=== PATIENT | female | born 1955 | race Caucasian/White ===

== ENCOUNTER → 2016-07-12 | Outpatient (CLI) | payer MEDICARE, OTHER ==
--- NOTE | 2016-07-12 13:22 | PN ---
DATE OF SERVICE: 07/12/2016 A 60-year-old lady who had been followed in sleep center for treatment of obstructive sleep apnea-hypopnea syndrome. We discussed results of diagnostic sleep study and CPAP titration with patient in details. Presently, she is on treatment with CPAP at 11 cm of water. She is able to use equipment at night except sometimes she opened her mouth. Otherwise, she sleeps better with the machine and feels better during the day. [place] Sleepiness Scale is 8. I checked her CPAP unit. CPAP pressure is 12 cm of water, ramp starting from 4 cm of water for 45 minutes. A leak is ( ) L per minute, which is acceptable; usage 29 out of 30 nights and 22 out of 30 nights for more than 4 hours, average usage 5.2 hours. Apnea-hypopnea index from the machine for one month 2.4, which is good range. MEDICATIONS: Gabapentin, Abilify, Ventolin inhaler, Breo, Percocet and antidepressant, patient does not remember the name. During physical exam, the patient in no distress. BP 107/67, HR 68, RR 16. Weight 199. Temp 98.6. Oxygen saturation at room air 93%. HEENT: PERRLA, EOMI. LUNGS: Clear. HEART: S1, S2 regular. ABDOMEN: Soft, nontender, slightly obese. EXTREMITIES: 1+ ankle edema. IMPRESSION: 1. Obstructive sleep apnea-hypopnea syndrome in moderate range. Apnea-hypopnea index 18.4 with oxygen desaturation to 69.9% in REM sleep. On control with CPAP at 12 cm of water. Patient demonstrated good compliance with treatment benefiting from treatment. 2. Obesity. 3. History of chronic obstructive pulmonary disease. 4. Low back problems. 5. Status post back infusion. 6. Bipolar disorder. 7. Status post left knee arthroscopic surgery. 8. One plus bilateral leg edema. PLAN: 1. Continue treatment with CPAP every night for the whole night. 2. Prescription for chin strap. 3. Losing weight. 4. Sleep hygiene with regular time in bed for at least 8 hours. 5. No driving if feeling any sleepiness. 6. Follow-up visit in one year unless patient has any problems. Thank you very for allowing me to participate in the management of your patient. Sincerely, Gino Barger MD, PhD, FAASM. Diplomat of [place] [employer], Sleep Medicine Board by [place] [employer] [employer] [facility] [place]
== END | disposition home or self-care (01) ==

== ENCOUNTER → 2016-10-09 | Outpatient (CLI) | payer MEDICARE, OTHER ==
[2016-10-08 10:50] VITALS: BMI 35.0
[2016-10-09 13:02] VITALS: BP 115/75; PULSE 89; RESP 16; TEMP 97.8
--- NOTE | 2016-10-10 07:48 | P.CONS ---
History of Present Illness - Reason for Consult Consult date: 10/09/16 - History of Present Illness This is the initial consultation visit for this 60 years old female with a chronic history of severe low back pain,, low back pain started in 1990 after she was doing heavy lifting at work, and she started complaining of severe low back pain she tried medical management first and then she felt the conservative treatment which required to have lumbar laminectomy and fusion surgery, she continued to have severe low back pain after the fusion and then she had to have another low back surgery which is removal of the hardware, and she did fairly well until 2011 when she fell and she starts having severe low back pain again, the pain localized in the low back area mainly, with occasional radiation to the posterior aspect of her legs, she had no fever or night sweats which she had no motor or sensory deficit, and she tried different pain medications without any significant improvement, Past Medical History Past Medical History: COPD, Sleep Apnea/CPAP/BIPAP Additional Past Medical History / Comment(s): Back pain, neuropathy, borderline hyperlipidema, states thinks she has Fibromyalgia. Uses CPAP machine. History of Any Multi-Drug Resistant Organisms: None Reported Past Surgical History: Back Surgery, Orthopedic Surgery Additional Past Surgical History / Comment(s): Back surgery X2, hand surgery, left knee arthoscopy. Past Anesthesia/Blood Transfusion Reactions: No Reported Reaction Past Psychological History: Anxiety, Depression Smoking Status: Current every day smoker Past Alcohol Use History: Rare Additional Past Alcohol Use History / Comment(s): Has been smoking 1/2 PPd on and off for 41 yrs. Past Drug Use History: Marijuana Additional Drug Use History / Comment(s): Uses medical Marajuana daily. - Past Family History Father Family Medical History: Cancer Medications and Allergies Home Medications Medication Instructions Recorded Confirmed Type ARIPiprazole [Abilify] 5 mg PO QAM 10/08/16 10/09/16 History Albuterol Inhaler [Ventolin Hfa 1 - 2 puff INHALATION Q6HR PRN 10/08/16 History Inhaler] Albuterol Nebulized [Ventolin 2.5 mg INHALATION Q4H PRN 10/08/16 10/09/16 History Nebulized] Gabapentin [Neurontin] 600 mg PO TID 10/08/16 10/09/16 History Tiotropium 18 Mcg/Puff [Spiriva] 1 cap INHALATION DAILY 10/08/16 10/09/16 History Vortioxetine Hydrobromide 5 mg PO QAM 10/08/16 10/09/16 History [Trintellix] oxyCODONE HCL/ACETAMINOPHEN 1 tab PO TID PRN 10/08/16 10/09/16 History [Percocet 10-325 mg] Allergies Allergy/AdvReac Type Severity Reaction Status Date / Time sulfamethoxazole AdvReac Itching Verified 10/09/16 12:53 [From Bactrim] trimethoprim [From Bactrim] AdvReac Itching Verified 10/09/16 12:53 Physical Exam Vitals: Vital Signs Temp Pulse Resp BP Pulse Ox 10/09/16 12:55 97.8 F 89 16 115/75 95 Social history : smoker , social ETOH , use marijuana/she had a medical marijuana Review of Systems : 1- Constitutional : no chills , no fever , no night sweats , 2- Ears : no ear discharge , no change in hearing 3-Nose, Mouth ,Throat ; no bleeding gums, no sore throat , no epistaxis , 4-Cardiovascular : Denies chest pain, , no orthopnea , no palpitation 5-Respiratory : Denies cough , no dyspnea , no hemoptysis 6-Gastrointestinal :, no change in bowel habits , no coffee- ground emesis . 7-Genitourinary : No hematuria , no discharge , no incontinence, 8-Musculoskeletal : No gait dysfunction , report low back pain , 9- Neurological : no ataxia , no tremor , no sezure , 10-Psychatric , no suicidal ideation no hallucination 11- Endocrine : no cold intolerence , no polyuria , no polydypsia , 12-Hematologic : no easy bleeding , no easy brusing , 13-Allergic / immunology : no angioedema , no wheezing ,no allergic rhinitis 14-Integumentary : no brttle nails , no change hair / nails , no foot/leg ulcers . Physical Examinations : 1-Constitutional : Cooperative , not in acute distress . 2-HEENT : nech ; supple , no Lymphadenopathy , no Thyromegaly , :eyes , no icterus, no photophobia . ENT : , normal oropharynx , no Thrush 3- Respiratory : Chest clear to auscultations Bilaterally , no wheezing . 4- Cardiovascular : regular rate and rhythem , S1 , S2 , no S3 , no S4. 5- Gastrointestinal: abdomen soft no tenderness , no organomegally . 6- Genitourinary : Defferred . 7-Integumentary : No cellulitis , no ulcers , normal skin turgor , no cyanotic . 8- neurologic : Cranial nerve II to XII intact , no focal neurological deffecit 9-psychatric : alert , oriented X 3 , appropriate affect , intact judgment and insight . 10-Lymphatic : no Lymphadenopathy. 11- musculoskeltal: exams of the cervical spine = motor stregnth in the deltoid and biceps, normal right side , normal Left side motor stregnth biceps and the wrist extensors normal right side ,normal left side . motor stregnth in the triceps muscle . normal Right side , normal Left side deep tendon reflexes normal at the biceps , normal at Brachioradialis , normal at triceps. exams of the Lumber spine = moter stegnth lower extremities , thigh and legs 5/5 Right side , 5/5 Left side deep tendon reflexes : normal Knee Jerk , normal ankle Jerk positive lumber facet Loading Test Range of motion of the lumbar spine Flexion 30 degrees, extension 10 degrees strait leg raising test , positive at 30 degree Fabere test positive RT and positive LT . Results Comments: X-ray of the lumbar spine= lumbar degenerative disc disease and lumbar facet arthropathy and spondylolisthesis Assessment and Plan Plan: Assessment and plan = - Chronic low back pain secondary to lumbar degenerative disc disease , lumbar spondylosis with facet arthropathy without myelopathy , failed back surgery syndrome lumbar area Patient signed the narcotic agreement , and was orally counseled not to overuse , abuse , divert, or sell medications ,and take them as prescribed only , and the patient was counseled against driving and while you are using the narcotic medication also not to use alcohol or any illicit drugs and the patient verbalized understanding that lack of compliance and could result in failure to renew narcotics prescriptions and possible discharge from the clinic - diagnoses, prognosis, and treatment options including but not limited to physical therapy, surgical interventions, interventional therapies and medication management including narcotics and adjuvant medication were discussed with the patient and all questions answered to the patient's satisfaction. -medication refile = patient getting prescription refills from her primary care -procedure= patient will be scheduled to have diagnostic medial branch block lumbar area at bilateral L3-4 /L4 5/L5-S1 , and do the diagnostic block twice and if she is positive we'll proceed with the radiofrequency ablation of the medial branch lumbar area Time with Patient: Greater than 30
== END | disposition home or self-care (01) ==
LOC: PNWHC3 12:28
PROVIDERS: ATTEND Specialist
DX: M51.36 Other intervertebral disc degeneration, lumbar region (principal); M47.816 Spondylosis without myelopathy or radiculopathy, lumbar region; M46.86 Other specified inflammatory spondylopathies, lumbar region; F32.9 Major depressive disorder, single episode, unspecified; F41.9 Anxiety disorder, unspecified; Z79.899 Other long term (current) drug therapy; Z88.2 Allergy status to sulfonamides
CPT/HCPCS: 99201

== ENCOUNTER 2016-11-02 11:41 | Day surgery (SDC) | payer MEDICARE, OTHER ==
[2016-10-31 15:00] VITALS: BMI 34.5
[~2016-11-02 11:41] MED LIST: LACTATED RINGERS 1,000 ML IV SCH
[2016-11-02 12:39] VITALS: RESP 16; TEMP 97.4
[2016-11-02] MEDS ORDERED: LIDOCAINE 1% 20 ML VIAL (10MG/ML) FOR IV START INTRADERMA ONE (12:49)
[2016-11-02] MEDS ORDERED: BUPIVACAINE (PF) 0.5% 30 ML VIAL ONE (13:01)
[2016-11-02] MEDS ORDERED: TRIAMCINOLONE ACETONIDE 40 MG/ML 1 ML VIAL ONE (13:01)
[2016-11-02] MEDS ORDERED: fentaNYL (PF) 50 MCG/ML 2 ML AMP ONE (13:01)
[2016-11-02] MEDS ORDERED: MIDAZOLAM 2 MG/2 ML VIAL ONE (13:01)
--- NOTE | 2016-11-02 13:36 | P.PCN ---
Date of Procedure: 11/02/16 Procedure(s) Performed: PREOPERATIVE DIAGNOSIS : 1- Lumbar spondylosis with Facet Arthropathy without myelopathy . 2- Lumber degenerative disc disease 3-Failed Back surgery Syndrome POSTOPERATIVE DIAGNOSIS: 1- Lumbar spondylosis with Facet Arthropathy without myelopathy . 2- Lumber degenerative disc disease 3-Failed Back surgery Syndrome PROCEDURE: Diagnostic bilateral L3 -4 , L4 -5 , and L5-S1 medial branch block under fluoroscopy ANESTHESIA: Local with 1% lidocaine 6 ml ; IV sedation with Versed 2 mg and Fentanyl 100 mcg. EBL: Minimal COMPLICATION: None. IV FLUIDS: 100 mL of normal saline. PROCEDURE INDICATION: Chronic low back pain secondary to Facet arthropathy unresponsive to conservative treatment. PROCEDURE DESCRIPTION: the patient was seen and identified in the preop holding area , risks and benefits and possible complications of the procedure and alternative were discussed with the patient, and the patient agreed to proceed with the procedure and signed the consent IV was started and vital signs monitored during the procedure and fluoroscopy was used to maximize the benefit and accuracy of the needle placement, and sedation was given to decrease patient anxiety, patient was taken to the procedure room and placed in prone position vital signs monitored in the back prepped with chlorhexidine X3 then under strict sterile technique using a right oblique fluoroscopy ,the junction of the transverse process and the superior articulating process of the right L3- 4 , L4- 5, and L5-S1 vertebra which corresponding to the fluoroscopy image of the eye of the Bryn dog on the block side for the medial branches and subsequently , after local infiltration of skin and subcu tissuies with lidocaine 1% one mL at each level ,then 22- gauge Quincke-type needles , 3 needle was used , each one of them placed at the junction of the base of the transverse process and the superior articular process at the appropriate level, and the needle was advanced until the periosteum contacted, needle placement confirmed with AP oblique and lateral view and after appropriate needle placement confirmed, and after negative aspiration for heme and CSF and there was no paresthesia 1-1/2 mL of Marcaine 0.5% mixed with 20 mg Kenalog , then half mL injected at each level after negative aspiration the needle subsequently removed and the same procedure repeated for the left side at left side at L3-4, L4- 5 and L5-S1 levels. At the end of the procedure and the needles removed and a bandage applied after the skin was cleaned the cleaning solution patient taken to recovery room in stable condition and monitors in the recovery room for 20-30 minutes and discharged home in stable condition after discharge criteria met and patient will follow up with the pain clinic in 2-4 weeks Note= restarting the procedure immediately after we put the EKG leads on the patient, patient has episode of a flutter/fibrillation for a few seconds, patient was hemodynamically stable, and converted to sinus rhythm spontaneously , Iwill order a 12-lead EKG in the recovery room .
--- NOTE | 2016-11-02 13:40 | FL ---
FLUOROSCOPY 18 seconds of fluoroscopy time were utilized during bilateral facet block. 4 images document the proc edure.
[2016-11-02 14:09] VITALS: BP 95/64; PULSE 66
== END 2016-11-02 14:30 | disposition home or self-care (01) ==
LOC: ORPAIN 11:41
PROVIDERS: ATTEND Specialist
DX: G89.29 Other chronic pain (principal); M47.816 Spondylosis without myelopathy or radiculopathy, lumbar region; M46.96 Unspecified inflammatory spondylopathy, lumbar region; M51.36 Other intervertebral disc degeneration, lumbar region; M96.1 Postlaminectomy syndrome, not elsewhere classified; R00.1 Bradycardia, unspecified; R94.31 Abnormal electrocardiogram [ECG] [EKG]; Z88.1 Allergy status to other antibiotic agents; Z88.2 Allergy status to sulfonamides; Z91.041 Radiographic dye allergy status; F17.200 Nicotine dependence, unspecified, uncomplicated
CPT/HCPCS: 93005; 64493; 64494; 64495; 99152; 99153; J2250; J3301; J3010

== ENCOUNTER 2016-11-29 10:10 | Day surgery (SDC) | payer MEDICARE, OTHER ==
[2016-11-28 09:51] VITALS: BMI 33.1
[2016-11-29 10:32] VITALS: RESP 16; TEMP 97
[2016-11-29] MEDS ORDERED: BUPIVACAINE (PF) 0.5% 30 ML VIAL ONE (11:05)
[2016-11-29] MEDS ORDERED: MIDAZOLAM 2 MG/2 ML VIAL ONE (11:05)
[2016-11-29] MEDS ORDERED: DEXAMETHASONE SOD PHOS (MDV) 100 MG/10 ML VIAL ONE (11:05)
[2016-11-29] MEDS ORDERED: fentaNYL (PF) 50 MCG/ML 2 ML AMP ONE (11:05)
--- NOTE | 2016-11-29 11:32 | P.PCN ---
Date of Procedure: 11/29/16 Preoperative Diagnosis: Postoperative Diagnosis: Procedure(s) Performed: PREOPERATIVE DIAGNOSIS : 1- Lumbar spondylosis with Facet Arthropathy without myelopathy . 2- Lumber degenerative disc disease 3- failed back surgery syndrome lumbar area POSTOPERATIVE DIAGNOSIS: 1- Lumbar spondylosis with Facet Arthropathy without myelopathy . 2- Lumber degenerative disc disease 3-failed back surgery syndrome lumbar area PROCEDURE: Diagnostic bilateral L3 -4 , L4 -5 , and L5-S1 medial branch block under fluoroscopy ANESTHESIA: Local with 1% lidocaine 6 ml ; IV sedation with Versed 2 mg and Fentanyl 100 mcg. EBL: Minimal COMPLICATION: None. IV FLUIDS: 100 mL of normal saline. PROCEDURE INDICATION: Chronic low back pain secondary to Facet arthropathy unresponsive to conservative treatment. PROCEDURE DESCRIPTION: the patient was seen and identified in the preop holding area , risks and benefits and possible complications of the procedure and alternative were discussed with the patient, and the patient agreed to proceed with the procedure and signed the consent IV was started and vital signs monitored during the procedure and fluoroscopy was used to maximize the benefit and accuracy of the needle placement, and sedation was given to decrease patient anxiety, patient was taken to the procedure room and placed in prone position vital signs monitored in the back prepped with chlorhexidine X3 then under strict sterile technique using a right oblique fluoroscopy ,the junction of the transverse process and the superior articulating process of the right L3- 4 , L4- 5, and L5-S1 vertebra which corresponding to the fluoroscopy image of the eye of the Bryn dog on the block side for the medial branches and subsequently , after local infiltration of skin and subcu tissuies with lidocaine 1% one mL at each level ,then 22- gauge Quincke-type needles , 3 needle was used , each one of them placed at the junction of the base of the transverse process and the superior articular process at the appropriate level, and the needle was advanced until the periosteum contacted, needle placement confirmed with AP oblique and lateral view and after appropriate needle placement confirmed, and after negative aspiration for heme and CSF and there was no paresthesia 1-1/2 mL of Marcaine 0.5% mixed with 10 mg Dexamethasone , then half mL injected at each level after negative aspiration the needle subsequently removed and the same procedure repeated for the left side at left side at L3-4, L4- 5 and L5-S1 levels. At the end of the procedure and the needles removed and a bandage applied after the skin was cleaned the cleaning solution patient taken to recovery room in stable condition and monitors in the recovery room for 20-30 minutes and discharged home in s Implants: Indications for Procedure: Operative Findings: Description of Procedure:
[2016-11-29] MEDS ORDERED: IV FLUID CONTINUATION 1,000 ML IV ONE (11:35)
[2016-11-29 11:54] VITALS: BP 110/71; PULSE 97
--- NOTE | 2016-11-29 14:40 | FL ---
EXAMINATION TYPE: FL guided pain mgmt statistic DATE OF EXAM: 11/29/2016 FLUOROSCOPY Fluoroscopy time of 12 seconds was used during lumbar pain intervention procedure.. 4 image/s docume nt/s the procedure.
== END 2016-11-29 12:16 | disposition home or self-care (01) ==
LOC: ORPAIN 10:10
PROVIDERS: ATTEND Specialist
DX: G89.29 Other chronic pain (principal); M51.36 Other intervertebral disc degeneration, lumbar region; M47.816 Spondylosis without myelopathy or radiculopathy, lumbar region; M46.96 Unspecified inflammatory spondylopathy, lumbar region; M96.1 Postlaminectomy syndrome, not elsewhere classified; J44.9 Chronic obstructive pulmonary disease, unspecified; G47.33 Obstructive sleep apnea (adult) (pediatric); Z88.2 Allergy status to sulfonamides; Z91.041 Radiographic dye allergy status
CPT/HCPCS: 64493; 64494; 64495; 99152; J2250; J3010; J1100

== ENCOUNTER 2016-12-24 12:51 | Emergency (ER) | payer MEDICARE, OTHER ==
[2016-12-24 12:57] VITALS: BP 137/86; PULSE 70; RESP 20; TEMP 98.4
--- NOTE | 2016-12-24 13:30 | ED ---
Skin/Abscess/FB HPI - General Chief complaint: Skin/Abscess/Foreign Body Stated complaint: Abscess on Finger Time Seen by Provider: 12/24/16 13:02 Source: patient Mode of arrival: ambulatory Limitations: no limitations - History of Present Illness Initial comments: This is a 61-year-old female who presents emergency department for right index finger swelling. She states that she noticed it 3 days ago and is gradually worsened. She states that [facility] was prescribed Keflex however has not started taking it. She denies any pain with flexion or extension of the finger. No fevers or chills. No numbness, tingling or weakness in the extremity. She states that she had some stitches placed in that area that were removed recently and that is where the swelling has occurred. She denies any other complaints. - Related Data Home Medications Medication Instructions Recorded Confirmed ARIPiprazole [Abilify] 5 mg PO QAM 10/08/16 12/24/16 Albuterol Inhaler [Ventolin Hfa 1 - 2 puff INHALATION RT-Q6H PRN 10/08/16 Inhaler] Albuterol Nebulized [Ventolin 2.5 mg INHALATION RT-Q4H PRN 10/08/16 12/24/16 Nebulized] Gabapentin [Neurontin] 600 mg PO TID 10/08/16 12/24/16 Tiotropium 18 Mcg/Puff [Spiriva] 1 cap INHALATION RT-DAILY 10/08/16 12/24/16 Vortioxetine Hydrobromide 5 mg PO QAM 10/08/16 12/24/16 [Trintellix] Ibuprofen [Motrin] 600 mg PO TID PRN 10/15/16 12/24/16 Previous Rx's Medication Instructions Recorded Clindamycin [Cleocin] 450 mg PO Q6H #84 capsule 12/24/16 Allergies Allergy/AdvReac Type Severity Reaction Status Date / Time Iodinated Contrast Media - Allergy Rash/Hives Verified 12/24/16 13:21 Oral and sulfamethoxazole Allergy Itching Verified 12/24/16 13:21 [From Bactrim] trimethoprim [From Bactrim] Allergy Itching Verified 12/24/16 13:21 Review of Systems ROS Statement: Those systems with pertinent positive or pertinent negative responses have been documented in the HPI. ROS Other: All systems not noted in ROS Statement are negative. Past Medical History Past Medical History: COPD, Sleep Apnea/CPAP/BIPAP Additional Past Medical History / Comment(s): Back pain, neuropathy, borderline hyperlipidema, states thinks she has Fibromyalgia. Uses CPAP machine. History of Any Multi-Drug Resistant Organisms: None Reported Past Surgical History: Back Surgery, Orthopedic Surgery Additional Past Surgical History / Comment(s): Back surgery X2, hand surgery, left knee arthoscopy. Past Anesthesia/Blood Transfusion Reactions: No Reported Reaction Past Psychological History: Anxiety, Depression Smoking Status: Current every day smoker - Past Family History Father Family Medical History: Cancer Mother Family Medical History: Myocardial Infarction ([place]) Additional Family Medical History / Comment(s): 2 stents in heart. General Exam - General Exam Comments Initial Comments: Constitutional: Awake alert Appears comfortable Head: Normocephalic atraumatic Eyes: no conjunctival injection No scleral icterus EOMI Neck: No JVD Supple Heart: Regular rate rhythm normal S1-S2 no murmurs Lungs: Clear to auscultation bilaterally No wheezing No rales Abdomen: Soft nondistended nontender Extremities: Non edematous DP pulses intact Radial pulses intact, 2 cm x 2 cm abscess over the right index finger PIP joint. No tenderness to palpation along the joint line. No pain with passive or active range of motion of the finger Neuro: A&Ox3 No focal neurologic deficits Psych: Appropriate mood and affect Limitations: no limitations Course Vital Signs 12/24/16 12:53 Temperature 98.4 F Pulse Rate 70 Respiratory 20 Rate Blood Pressure 137/86 O2 Sat by Pulse 98 Oximetry Procedures - Incision & Drainage Consent Obtained: verbal consent Site: hand Size (cm): 2 Anesthetic Used: lidocaine 1%, without epi Amount (mLs): 2 I&D Cleaning Method: Betadine Sterile Field Used?: Yes Scalpel Used: #11 I&D Drainage Obtained: Pus, Blood Patient Tolerated Procedure: well, no complications Medical Decision Making - Medical Decision Making Is a 61-year-old female presents emergency report for right index finger abscess. This was incised and drained at bedside with good result. The patient is going to be switched over to clindamycin for the abscess. She was told to not fill her Keflex. She needs to have it reevaluated next 3 or 4 days. She will return if it worsens. All questions were answered. Disposition Clinical Impression: Abscess of finger Disposition: HOME SELF-CARE Condition: Stable Instructions: Abscess Incision and Drainage (ED), Abscess (ED) Additional Instructions: Do not take her Keflex. Take the clindamycin instead of the Keflex. Wash with warm water and soap. Place antibiotic ointment over the wound area monitor for signs of increased swelling. Have it reevaluated by her primary doctor in the next 3-4 days. Prescriptions: Clindamycin [Cleocin] 450 mg PO Q6H #84 capsule Referrals: Fer Villegas MD [Primary Care Provider] - 1-2 days
== END 2016-12-24 13:57 | disposition home or self-care (01) ==
LOC: EC 12:51
DX: L02.511 Cutaneous abscess of right hand (principal); J44.9 Chronic obstructive pulmonary disease, unspecified; F32.9 Major depressive disorder, single episode, unspecified; F17.200 Nicotine dependence, unspecified, uncomplicated; Z88.2 Allergy status to sulfonamides; Z91.041 Radiographic dye allergy status; Z79.899 Other long term (current) drug therapy
CPT/HCPCS: 10060; 99282

== ENCOUNTER → 2017-02-04 | Outpatient (CLI) | payer MEDICARE ==
[2017-02-04 14:43] VITALS: BP 123/69; PULSE 72; RESP 16; TEMP 97.9
--- NOTE | 2017-02-04 15:02 | P.PN ---
Progress Note - Text This is a 61-year-old female with lower back pain that responded favorably by about 100% relief of LBP after lumbar medial branch block that was done a few weeks ago. The patient had lumbar laminectomy and she still has the facet joints in place she doesn't have any hardware in her lumbar spine. The patient had a TIA recently and was started on aspirin 81 mg a day. I think the patient would be a good candidate for lumbar medial branch pharmacy ablation we will start by doing the right side first because it is the more painful side. The procedure was explained to the patient and her questions were answered.
== END ==
LOC: PNWHC3 14:23
PROVIDERS: ATTEND Anesthesiology
DX: M54.5 Low back pain (principal); Z79.899 Other long term (current) drug therapy
CPT/HCPCS: 99211

== ENCOUNTER 2017-02-21 06:53 | Day surgery (SDC) | payer MEDICARE ==
[2017-02-19 09:37] VITALS: BMI 32.2
[2017-02-21] MEDS ORDERED: LACTATED RINGERS 1,000 ML IV ONE (07:15)
[2017-02-21 07:34] VITALS: TEMP 97.8
[2017-02-21] MEDS ORDERED: LIDOCAINE 1% 20 ML VIAL (10MG/ML) FOR IV START INTRADERMA ONE (07:42)
--- NOTE | 2017-02-21 08:49 | P.PCN ---
Date of Procedure: 02/21/17 Preoperative Diagnosis: Postoperative Diagnosis: Procedure(s) Performed: PREOPERATIVE DIAGNOSIS: 1-Lumbar Spondylosis with Facet Arthropathy without myelopathy. 2- Lumber degenerative disc disease. POSTOPERATIVE DIAGNOSIS: 1- Lumbar Spondylosis with Facet Arthropathy without myelopathy. 2- Lumber degenerative disc disease. PROCEDURES : Right Radiofrequency thermocoagulation, L3-L4, L4-L5, and L5-S1 medial branch, with fluoroscopic guidance ANESTHESIA: IV sedation with versed 2 mg and fentaneyl 50 mcg and local infiltration with lidocaine 1% 6 ml EBL: Minimal PROCEDURE INDICATION: The patient with low back pain secondary to lumbar facet arthropathy who had more than 50% relief of her pain with previous diagnostic lumbar medial branch block with bupivacaine. PROCEDURE DESCRIPTION / TECHNIQUE: The patient was seen and identified in the preoperative area. Risks, benefits, complications, including but not limited to risk of infection ,bleeding , allergic reactions to the medications and no complete pain releife , and alternatives were discussed with the patient, the patient agreed to proceed with the procedure and signed the consent. IV was started. Vital signs remained stable throughout the procedure. Patient was taken to the OR and time out was completed. The patient was placed in the prone position on the procedure table. The lumber area was prepped and draped in the usual sterile fashion. . Vital signs were closely monitored during the procedure .IV sedation was used during the procedure to decrease patients anxiety. Using AP and then oblique fluoroscopy, the ``eye of the Bryn dog corresponding to the connection between the superior and transverse articular processes of right L3, L4, and L5 were identified, marked, and localized with 1 % lidocaine. Subsequently, a 18 [id number] radiofrequency cannula with a 10- mm active tip was advanced guided by fluoroscopy to each of the ``eyes of the Bryn dog at right L3, L4, and L5. Each site then underwent sensory testing at 50 Hz and 0 to 1 volt and motor testing at 2.5 Hz and 0 to 3 volt with local stimulation, but no radicular symptoms down the legs. Thereafter the right L3-4, L4-5, and L5-S1 sites underwent radiofrequency thermocoagulation at 80 degrees celsius for 90 seconds after injecting 0.5 ml of PF lidocaine 1%. then After the thermocoagulation done , 1 ml of the block solution containing dexamethasone 10 mg and 3 ml of marain 0.5% was injected at the right L3-4 , L4-5 , and L5-S1, levels after negative aspiration of CSF and blood and with no paresthesias. Cannulas were retracted while injecting lidocaine 1% until the needle is out. At the end of the procedure, the skin was cleansed and bandages were applied. COMPLICATIONS: No acute complications. DISPOSITION / PLANS: The patient was placed in a supine position and transferred to the recovery area in a stable condition for observation and was discharged from the recovery room after meeting discharge criteria. Home discharge instructions given to the patient by the staff. The patient was reexamined prior to discharge. The patient will schedule a follow up in the clinic in 2-4 weeks. Implants: Indications for Procedure: Operative Findings: Description of Procedure:
--- NOTE | 2017-02-21 08:55 | FL ---
EXAMINATION TYPE: FL guided pain mgmt statistic DATE OF EXAM: 02/21/2017 HISTORY: Flouroscopy time 17 seconds of fluoroscopy provided. IMPRESSION: 1. Fluoroscopy time.
[2017-02-21] MEDS ORDERED: IV FLUID CONTINUATION 600 ML IV ONE (08:57)
[2017-02-21 09:01] VITALS: RESP 16
[2017-02-21 09:20] VITALS: BP 99/62; PULSE 56
== END 2017-02-21 09:47 | disposition home or self-care (01) ==
LOC: ORPAIN 06:53
PROVIDERS: ATTEND Specialist
DX: M51.36 Other intervertebral disc degeneration, lumbar region (principal); M47.816 Spondylosis without myelopathy or radiculopathy, lumbar region; M46.96 Unspecified inflammatory spondylopathy, lumbar region; J44.9 Chronic obstructive pulmonary disease, unspecified; G47.33 Obstructive sleep apnea (adult) (pediatric); Z86.73 Personal history of transient ischemic attack (TIA), and cerebral infarction without residual deficits; Z88.2 Allergy status to sulfonamides; Z91.041 Radiographic dye allergy status
CPT/HCPCS: 64635; 64636 ×2; 99152; J2250; J1100; J3010; 99153

== ENCOUNTER 2017-03-19 07:53 | Day surgery (SDC) | payer MEDICARE ==
[2017-03-19] MEDS ORDERED: LACTATED RINGERS 1,000 ML IV SCH (08:44)
[2017-03-19 09:00] VITALS: RESP 18; TEMP 97.7
[2017-03-19] MEDS ORDERED: LEVALBUTEROL NEB 1.25 MG/3 ML AMP INHALATION STA (09:19)
[2017-03-19] MEDS ORDERED: LIDOCAINE 1% 20 ML VIAL (10MG/ML) FOR IV START INTRADERMA ONE (09:21)
--- NOTE | 2017-03-19 10:22 | P.PCN ---
Date of Procedure: 03/19/17 Procedure(s) Performed: PREOPERATIVE DIAGNOSIS: 1-Lumbar Spondylosis with Facet Arthropathy without myelopathy. POSTOPERATIVE DIAGNOSIS: 1- Lumbar Spondylosis with Facet Arthropathy without myelopathy. PROCEDURES : Left Radiofrequency thermocoagulation, L3-L4, L4-L5, and L5-S1 medial branch, with fluoroscopic guidance ANESTHESIA: IV sedation with versed 2 mg and fentaneyl 50 mcg and local infiltration with lidocaine 1% 6 ml EBL: Minimal PROCEDURE INDICATION: The patient with low back pain secondary to lumbar facet arthropathy who had more than 50% relief of her pain with previous diagnostic lumbar medial branch block with bupivacaine. PROCEDURE DESCRIPTION / TECHNIQUE: The patient was seen and identified in the preoperative area. Risks, benefits, complications, including but not limited to risk of infection ,bleeding , allergic reactions to the medications and no complete pain releife , and alternatives were discussed with the patient, the patient agreed to proceed with the procedure and signed the consent. IV was started. Vital signs remained stable throughout the procedure. Patient was taken to the OR and time out was completed. The patient was placed in the prone position on the procedure table. The lumber area was prepped and draped in the usual sterile fashion. . Vital signs were closely monitored during the procedure .IV sedation was used during the procedure to decrease patients anxiety. Using AP and then oblique fluoroscopy, the ``eye of the Bryn dog corresponding to the connection between the superior and transverse articular processes of left L3, L4, and L5 were identified, marked, and localized with 1 % lidocaine. Subsequently, a 18 [id number] radiofrequency cannula with a 10- mm active tip was advanced guided by fluoroscopy to each of the ``eyes of the Bryn dog at left L3, L4, and L5. Each site then underwent sensory testing at 50 Hz and 0 to 1 volt and motor testing at 2.5 Hz and 0 to 3 volt with local stimulation, but no radicular symptoms down the legs. Thereafter the left L3-4, L4-5, and L5-S1 sites underwent radiofrequency thermocoagulation at 80 degrees celsius for 90 seconds after injecting 0.5 ml of PF lidocaine 1%. then After the thermocoagulation done , 1 ml of the block solution containing Kenalog 40 mg and 3 ml of marain 0.5% was injected at the left L3-4 , L4-5 , and L5-S1, levels after negative aspiration of CSF and blood and with no paresthesias. Cannulas were retracted while injecting lidocaine 1% until the needle is out. At the end of the procedure, the skin was cleansed and bandages were applied. COMPLICATIONS: No acute complications. DISPOSITION / PLANS: The patient was placed in a supine position and transferred to the recovery area in a stable condition for observation and was discharged from the recovery room after meeting discharge criteria. Home discharge instructions given to the patient by the staff. The patient was reexamined prior to discharge. The patient will schedule a follow up in the clinic in 2-4 weeks.
--- NOTE | 2017-03-19 10:46 | FL ---
EXAMINATION TYPE: FL guided pain mgmt statistic DATE OF EXAM: 03/19/2017 CLINICAL HISTORY: Low back pain. TECHNIQUE: Fluoroscopy. COMPARISON: None. FINDINGS: Fluoroscopic guidance was provided during pain relief procedure performed by Dr. Silva . A total of 19 seconds of fluoroscopic time was utilized during the procedure and 3 spot images are acquired. Images acquired shows needle localization at multiple levels in the lower lumbar spine. IMPRESSION: As Above.
[2017-03-19 10:59] VITALS: BP 110/74; PULSE 71
[2017-03-19] MEDS ORDERED: IV FLUID CONTINUATION 1,000 ML IV ONE (11:08)
== END 2017-03-19 11:18 | disposition home or self-care (01) ==
LOC: ORPAIN 07:53
PROVIDERS: ATTEND Specialist
DX: M47.816 Spondylosis without myelopathy or radiculopathy, lumbar region (principal); J44.9 Chronic obstructive pulmonary disease, unspecified; Z86.73 Personal history of transient ischemic attack (TIA), and cerebral infarction without residual deficits; Z88.2 Allergy status to sulfonamides; Z88.8 Allergy status to other drugs, medicaments and biological substances; Z91.041 Radiographic dye allergy status
CPT/HCPCS: 94640; 64635; 64636 ×2; 99152; J2250; J3301; J3010; 99153

== ENCOUNTER → 2017-04-09 | Outpatient (CLI) | payer MEDICARE ==
[2017-04-09 14:47] VITALS: BP 134/81; PULSE 150; RESP 18
--- NOTE | 2017-04-09 14:58 | P.PN ---
Progress Note - Text Progress Note Date: 04/09/17 Patient returns for followup for chronic back pain. Patient recently underwent bilateral lumbar RFA, which provided some relief for interval since procedure. Patient continues on no regular pain medications except gabapentin but does use medical marijuana. Patient denies adverse drug effects from medications. Today , pt denies new-onset weakness, bowel/bladder incontinence, or any other signs or symptoms of cauda equina syndrome. There are no signs of acute intoxication, and no indications of medication diversion or overuse. In addition to above, 13-point review of systems is also negative for chest pain , shortness of breath, changes in vision, changes in hearing, new onset weakness , abdominal pain, diarrhea, extreme fatigue, malaise, fever, skin changes, homicidal or suicidal ideation, or bowel or bladder incontinence. Vital Signs: Reviewed in EMR Gen: WDWN, AAOx3, NAD HEENT: NCAT, EOMI, hearing grossly normal Pulm: resp unlabored Abd: soft, NT, ND Neck: supple, trachea midline ROM in flexion lumbar spine: reduced ROM in extension lumbar spine: reduced Lumbar paravertebral tenderness: + Facet loading: + bilateral SI joint tenderness: + R > L Victoriano's test: + R > L Straight leg raise: neg Neuro: CN II-XII grossly intact, muscle strength lower extremities PRESERVED Imaging: Reviewed in EMR Assessment: 1. lumbar spondylosis without myelopathy 2. SIJ dysfunction 3. chronic pain syndrome Plan: 1. Explanation: Opioid and psychological risk scores were reviewed. Diagnoses , prognoses, and multiple treatment options including but not limited to physical therapy, interventional therapies, adjuvant medical therapies, narcotic medication therapies, and surgery were discussed with the patient and all questions were answered to the patient's satisfaction. 2. Opioid agreement: Patient has previously signed narcotic agreement, and was orally counseled to not overuse, abuse, divert, or cell medications, and to take them as prescribed by only 1 healthcare provider. The patient was also counseled to store opioid medications in a safe and preferably locked location. Patient was also counseled against driving or operating heavy equipment while using narcotic medications and also to not use alcohol or any illicit or recreational drugs. The patient verbalized understanding that lack of compliance with any of the above and likely result in failure to renew narcotic prescriptions, possible discharge from the clinic, and possible legal ramifications thereafter if indicated. 3. Counseling: The patient was counseled extensively on SMOKING CESSATION, BODY MASS INDEX, EXERCISE. Specifically, the patient was instructed regarding the importance of smoking cessation, weight control, and exercise in the context of both chronic pain and overall health. 4. Procedures: none for now 5. Consultations: None 6. Investigations: None 7. Medications: none prescribed 8. Disposition: f/u for re-eval in 12 weeks. If PCP prefers not to write gabapentin, we can take over and prescribe 100 mg TID #90 with one refill PQRS measures: 1-Patient's medications are documented in the chart. 2-Tobacco use is positive, counseling given 3-Patient has not had a pneumococcal vaccine. 4-Advanced care planning discussed, patient unable to give. 5-Opioid contract NOT signed with the patient. 6-Pain positive, follow-up visit or procedure scheduled 7-Patient's blood pressure measured and documented, and patient will follow up with the primary care due to hypertension. 8-Patient's weight was measured, and body mass index ABOVE the normal limits, and counseling was done. Patient instructed to follow up with PCP. 9-Patient WAS NOT identified as an unhealthy alcohol user.
== END | disposition home or self-care (01) ==
LOC: PNWHC3 14:29
PROVIDERS: ATTEND Anesthesiology
DX: M47.816 Spondylosis without myelopathy or radiculopathy, lumbar region (principal); M53.3 Sacrococcygeal disorders, not elsewhere classified; G89.4 Chronic pain syndrome
CPT/HCPCS: 99211

== ENCOUNTER 2017-05-01 10:59 | Inpatient (IN) | payer MEDICARE, OTHER ==
[2017-04-26 12:46] VITALS: BMI 32.5
[2017-05-01] MEDS ORDERED: SODIUM CHLORIDE 0.9% 500 ML IV ONE (11:10)
[2017-05-01] MEDS: APIXABAN 5 MG TAB PO SCH ×2 (12:40→21:04)
[2017-05-01] MEDS ORDERED: SODIUM CHLORIDE 0.9% 500 ML IV SCH (13:00)
--- NOTE | 2017-05-01 13:01 | CONS ---
CONSULTATION Mrs. Grullon is a 61-year-old female, who is admitted through the extended stay unit because of the atrial flutter and rapid rate. This patient was recently seen in the office for the evaluation of PFO and patient was supposed to have a TAMMIE done to rule out significant PFO. The patient was recently admitted to the [facility] in December with symptoms suggestive of TIA. Patient had left-side numbness, weakness and facial droop as well as some garbled speech. The patient's symptoms actually resolved prior to coming to the hospital. According to the patient, while she was in the hospital, she did not have any irregular heart beat. The echocardiogram showed the transthoracic echocardiogram showed possible PFO with hkmti-wq-gajv shunt. The patient was discharged home on aspirin. There is no prior history of atrial fibrillation. There is a history of dyslipidemia. Patient denies any history suggestive of angina. Denies any prior history of myocardial infarction. Patient does smoke and she does have a history of sleep apnea. PAST MEDICAL HISTORY: Includes a history of TIA, questionable PFO, mixed hyperlipidemia. SOCIAL HISTORY: Patient is currently smoking every day. MEDICATIONS: The patient's medications at home include: 1. Aspirin once a day. 2. Citalopram 20 mg daily. 3. Gabapentin 600 mg daily. 4. Lipitor 40 mg daily. 5. Protonix 20 mg daily. 6. Spiriva 18 mcg daily. 7. Wellbutrin 150 mg daily. PHYSICAL EXAMINATION: At present reveals a 61-year-old female, who is obesely built. Does not appear to be in any acute distress. The patient's is heart rate is 160 per minute, blood pressure is 130/80 mmHg. HEENT examination is negative. NECK: Supple. There is no increase in jugular venous pressure. Both the carotid pulses are felt. There is no bruit. Chest is symmetrical. Heart the PMI is not felt. First and second heart sounds are normal. Lungs are clinically clear to auscultation and percussion. Abdomen is negative. Extremities: Peripheral pulses are 2+. EKG shows evidence of atrial flutter with a rate of 150. IMPRESSION: This patient has evidence of paroxysmal atrial flutter. Patient had a recent history suggestive for TIA in December. The patient's recent transthoracic echocardiogram done in the [facility] raised the possibility of PFO. RECOMMENDATIONS: Patient is admitted to the hospital. We will start the patient on Eliquis 5 mg b.i.d. we will start the patient on Cardizem drip to control the rate. If the patient persist with atrial flutter, we will start her on Rythmol 600 mg and 150 mg q.8 hourly. If the patient persists to be in atrial fibrillation. She may need cardioversion. MAKSIM / TED: [id number] /
[2017-05-01] MEDS: DILTIAZEM 125 MG in SODIUM CHLORIDE 0.9% 100 ML IV SCH ×2 (13:20→23:37)
[2017-05-01 14:06] LABS: Basophils % (A) 0 %; CH 28.4; CHCM 31.1; Eosinophils # (A) 0.1 k/uL (0-0.7); Eosinophils % (A) 1 %; HCT 48.1 % (34.0-46.0); HGB 14.9 gm/dL (11.4-16.0); Hypochromasia Slight; Luc # (Auto) 0.11; Luc % (Auto) 2; Lymphocytes # (A) 1.8 k/uL (1.0-4.8); Lymphocytes % (A) 23 %; MCH 28.5 pg (25.0-35.0); MCV 91.7 fL (80.0-100.0); Mean Platelet Volume 6.9; Monocytes # (A) 0.4 k/uL (0-1.0); Monocytes % (A) 5 %; Neutrophils # (A) 5.3 k/uL (1.3-7.7); Neutrophils % (A) 69 %; RBC 5.25 m/uL (3.80-5.40); RDW 14.3 % (11.5-15.5); WBC 7.7 k/uL (3.8-10.6); WBC (Perox) 7.47
[2017-05-01 14:23] LABS: ALT 42 U/L (9-52); AST 22 U/L (14-36); Alkaline Phosphatase 104 U/L (38-126); Anion Gap 10 mmol/L; Blood Urea Nitrogen 20 mg/dL (7-17); Calcium 9.5 mg/dL (8.4-10.2); Carbon Dioxide 22 mmol/L (22-30); Chloride 109 mmol/L (98-107); Glucose 110 mg/dL (74-99); Non-African American GFR(MDRD) 55 (>60 ml/min/1.73 sqM); Potassium 4.3 mmol/L (3.5-5.1); Sodium 141 mmol/L (137-145); Total Bilirubin 0.5 mg/dL (0.2-1.3); Total Protein 7.7 g/dL (6.3-8.2)
[2017-05-01] MEDS ORDERED: PROPAFENONE 150 MG TAB PO STA (16:32)
[2017-05-01] MEDS: PANTOPRAZOLE 40 MG TABLET PO SCH (18:00)
[2017-05-01] MEDS: buPROPion SR 150 MG TABLET.ER PO SCH (18:00)
[2017-05-01] MEDS: CITALOPRAM HYDROBROMIDE 20 MG TAB PO SCH (18:00)
[2017-05-01] MEDS: ATORVASTATIN 40 MG TAB PO SCH (21:04)
[2017-05-02] MEDS: PANTOPRAZOLE 40 MG TABLET PO SCH (06:32)
[2017-05-02] MEDS: APIXABAN 5 MG TAB PO SCH ×2 (08:04→20:12)
[2017-05-02] MEDS: CITALOPRAM HYDROBROMIDE 20 MG TAB PO SCH (08:04)
[2017-05-02] MEDS: buPROPion SR 150 MG TABLET.ER PO SCH (08:05)
[2017-05-02] MEDS: IPRATROPIUM 0.5 MG/2.5 ML NEBU INHALATION SCH ×4 (08:35→20:00)
[2017-05-02] MEDS ORDERED: DEXTROSE 5% IN WATER 100 ML with AMIODARONE 150 MG IV ONE (09:00)
[2017-05-02] MEDS: AMIODARONE 450 MG in DEXTROSE 5% IN WATER 250 ML IV SCH ×6 (09:20→20:54)
[2017-05-02] MEDS: SODIUM CHLORIDE 0.9% 1,000 ML IV SCH (09:21)
--- NOTE | 2017-05-02 12:37 | P.PN ---
Subjective Progress Note Date: 05/02/17 Principal diagnosis: Atrial flutter This is a 61-year-old female who was initially admitted through the extended stay unit to the floor because of atrial flutter with rapid ventricular response. Patient had recently been seen in the office for evaluation of a PFO and was supposed to have a TAMMIE done as an outpatient. She recently was admitted to [facility] with symptoms suggestive of TIA. Echocardiogram showed a possible PFO with imruu-wq-sedt shunt and patient was discharged home on aspirin. She had no prior documented history of atrial fibrillation she does have a history of hyperlipidemia. Because of the newly found atrial flutter with rapid ventricular response, patient was admitted to the cardiac unit. She was initiated on IV Cardizem and started on Eliquis. Patient was given a one-time dose of 600 mg of Rythmol last evening, she continued to be in atrial flutter this morning. We will discontinue the Cardizem drip and start the patient on IV amiodarone. If the patient does not convert to normal sinus rhythm she will be scheduled to undergo elective cardioversion tomorrow. The risks and the benefits were explained to the patient in detail and she is willing to proceed. Blood pressure this morning 93 /64 with a heart rate in the 70s, 93% on room air. White blood cell count 7.7, hemoglobin 14.9, platelet count 219. Potassium 4.3, BUN 20, creatinine 1.0. TSH 0.978. Objective - Vital Signs Vital signs: Vital Signs Temp 97.0 F L 05/02/17 04:00 Pulse 76 05/02/17 12:04 Resp 18 05/02/17 09:45 BP 93/64 05/02/17 09:45 Pulse Ox 93 L 05/02/17 09:45 Intake & Output 05/01/17 05/02/17 05/02/17 18:59 06:59 18:59 Intake Total 222 262.833 120 Output Total 250 300 Balance -28 -37.167 120 Weight 83.461 kg 84.3 kg Intake: IV 160 Diltiazem 125 mg In 160 Sodium Chloride 0.9% 100 ml @ 10 MG/HR 10 mls/hr IV .[id number] [facility] Rx#: [id number] Intake, IV Titration 102.833 Amount Diltiazem 125 mg In 102.833 Sodium Chloride 0.9% 100 ml @ 10 MG/HR 10 mls/hr IV .[id number] [facility] Rx#: [id number] Oral 222 120 Output: Urine 250 300 Other: Voiding Method Toilet Toilet # Voids 2 - Exam PHYSICAL EXAMINATION: HEENT: Head is atraumatic, normocephalic. Pupils equal, round. Neck is supple. There is no elevated jugular venous pressure. HEART EXAMINATION: Heart S1 and S2 irregularly irregular CHEST EXAMINATION: Lungs are clear to auscultation and precussion. No chest wall tenderness is noted on palpation or with deep breathing. ABDOMEN: Soft, nontender. Bowel sounds are heard. No organomegaly noted. EXTREMITIES: 2+ peripheral pulses with no evidence of peripheral edema and no calf tenderness noted. NEUROLOGIC patient is awake, alert and oriented -3. . - Labs CBC & Chem 7: 05/01/17 13:49 05/01/17 13:49 Labs: Abnormal Lab Results - Last 24 Hours (Table) 05/01/17 05/01/17 Range/Units 13:49 13:49 Hct 48.1 H (34.0-46.0) % Chloride 109 H (98-107) mmol/L BUN 20 H (7-17) mg/dL Glucose 110 H (74-99) mg/dL Assessment and Plan Plan: Assessment and plan #1 atrial flutter with rapid ventricular response, paroxysmal. Patient currently on Eliquis, we will discontinue the IV Cardizem drip and start the patient on IV amiodarone. #2 possible PFO, patient had an outpatient echocardiogram with Doppler study which revealed a possible PFO with chjyf-ki-utmm shunt, she was scheduled to undergo a TAMMIE this admission, this was halted because of the atrial flutter with rapid ventricular response. #3 history of TIA #4 hyperlipidemia Plan We will discontinue the IV Cardizem and start the patient on IV amiodarone. We did give the patient one time dose of 600 mg of Rythmol last evening and she continued to be in atrial flutter this morning. If the patient does not convert to normal sinus rhythm by morning, she will undergo elective cardioversion. The risks and the benefits were explained to the patient in detail and she is willing to proceed. DNP note has been reviewed, I agree with a documented findings and plan of care. Patient was seen and examined.
[2017-05-02] MEDS: ATORVASTATIN 40 MG TAB PO SCH (20:12)
[2017-05-03] MEDS: PANTOPRAZOLE 40 MG TABLET PO SCH (06:40)
[2017-05-03] MEDS: IPRATROPIUM 0.5 MG/2.5 ML NEBU INHALATION SCH ×4 (08:16→19:01)
[2017-05-03] MEDS: buPROPion SR 150 MG TABLET.ER PO SCH (08:25)
[2017-05-03] MEDS: CITALOPRAM HYDROBROMIDE 20 MG TAB PO SCH (08:25)
[2017-05-03] MEDS: APIXABAN 5 MG TAB PO SCH ×2 (08:25→20:37)
[2017-05-03] MEDS ORDERED: AMIODARONE 200 MG TAB PO SCH (09:15)
[2017-05-03] MEDS: SODIUM CHLORIDE 0.9% 1,000 ML IV SCH (10:04)
[2017-05-03] MEDS: AMIODARONE 450 MG in DEXTROSE 5% IN WATER 250 ML IV SCH ×2 (10:04)
[2017-05-03] MEDS ORDERED: SODIUM CHLORIDE 0.9% 500 ML IV ONE ×2 (12:06)
[2017-05-03] MEDS ORDERED: PROPOFOL 10 MG/ML 20 ML VIAL IV ONE (12:14)
[2017-05-03] MEDS ORDERED: LIDOCAINE 1% INJ 10MG/ML (20 ML MDV) ONE (12:14)
[2017-05-03] MEDS ORDERED: BENZOCAINE SPRAY 1 CAN MUCOUS MEM ONE (12:25)
[2017-05-03] MEDS ORDERED: ALBUTEROL NEBULIZED 2.5 MG/3 ML INHALATION PRN (12:41)
[2017-05-03] MEDS ORDERED: SODIUM CHLORIDE 0.9% 1,000 ML IV SCH (12:45)
--- NOTE | 2017-05-03 13:22 | ECHOT ---
TRANSESOPHAGEAL ECHOCARDIOGRAM TRANSESOPHAGEAL ECHOCARDIOGRAM: INDICATION: Transesophageal echocardiogram was performed to evaluate for PFO and to rule out any cardiac thrombi prior to cardioversion. PROCEDURE: The patient was given intravenous sedation by the nurse labelling machine operator with propofol and transesophageal echocardiogram was performed without any complications. Left ventricular chamber is normal in size with normal left ventricular systolic functions. Aortic, mitral and tricuspid valve morphology is normal. Left atrium is mildly enlarged. Left atrial appendage is clear and there is no evidence of any thrombus. There is no evidence of thrombus in the left atrium. Color Doppler study shows mild degree of mitral regurgitation. There is evidence of small PFO with a lsue-pd-xuwtm shunt. Saline contrast study was performed 3 times. No suurr-ge-zpjg shunt was noted. IMPRESSION: 1. Normal left ventricular chamber size with normal left ventricular systolic function. 2. There is no evidence of thrombus in left atrial appendage. 3. There is evidence of small PFO with hsrw-mf-tuwpt shunt. 4. There is no evidence of any atrial septal aneurysm. 5. Saline contrast study did not show any ocnyw-jl-nxcw shunt. 6. Mitral, aortic and tricuspid valve morphology is normal. RECOMMENDATIONS: Proceed with a cardioversion. MMODL / IJN: [id number] /
--- NOTE | 2017-05-03 13:22 | CA ---
CARDIOLOGY REPORT PROCEDURE: Cardioversion Patient was given intravenous sedation with propofol and the patient was DC cardioverted with 200 joules with normal sinus rhythm. Patient tolerated the procedure well. MAKSIM / TED: [id number] /
[2017-05-03] MEDS: ATORVASTATIN 40 MG TAB PO SCH (20:37)
[2017-05-03] MEDS: FLECAINIDE 50 MG TAB PO SCH (20:40)
[2017-05-04 06:14] VITALS: TEMP 97.3
[2017-05-04] MEDS: PANTOPRAZOLE 40 MG TABLET PO SCH (06:50)
[2017-05-04] MEDS: IPRATROPIUM 0.5 MG/2.5 ML NEBU INHALATION SCH ×2 (07:33→11:32)
[2017-05-04] MEDS: APIXABAN 5 MG TAB PO SCH (08:54)
[2017-05-04] MEDS: FLECAINIDE 50 MG TAB PO SCH (08:55)
[2017-05-04] MEDS: buPROPion SR 150 MG TABLET.ER PO SCH (08:55)
[2017-05-04 11:01] VITALS: RESP 16
[2017-05-04 11:35] VITALS: PULSE 72
[2017-05-04 11:53] VITALS: BP 106/66
[2017-05-04] MEDS: CITALOPRAM HYDROBROMIDE 20 MG TAB PO SCH (11:59)
--- NOTE | 2017-05-04 12:11 | P.PN ---
Subjective Progress Note Date: 05/04/17 Principal diagnosis: Atrial flutter This is a 61-year-old female who was initially admitted through the extended stay unit to the floor because of atrial flutter with rapid ventricular response. Patient had recently been seen in the office for evaluation of a PFO and was supposed to have a TAMMIE done as an outpatient. She recently was admitted to [facility] with symptoms suggestive of TIA. Echocardiogram showed a possible PFO with avmlh-oq-yhyp shunt and patient was discharged home on aspirin. She had no prior documented history of atrial fibrillation she does have a history of hyperlipidemia. Because of the newly found atrial flutter with rapid ventricular response, patient was admitted to the cardiac unit. She was initiated on IV Cardizem and started on Eliquis. Patient was given a one-time dose of 600 mg of Rythmol last evening, she continued to be in atrial flutter this morning. We will discontinue the Cardizem drip and start the patient on IV amiodarone. If the patient does not convert to normal sinus rhythm she will be scheduled to undergo elective cardioversion tomorrow. The risks and the benefits were explained to the patient in detail and she is willing to proceed. Blood pressure this morning 93 /64 with a heart rate in the 70s, 93% on room air. White blood cell count 7.7, hemoglobin 14.9, platelet count 219. Potassium 4.3, BUN 20, creatinine 1.0. TSH 0.978. 05/04/2017 Patient underwent a transesophageal echocardiographic study yesterday revealed normal left ventricular chamber size with normal LV function, no evidence of a thrombus in the left atrial appendage, evidence of small PFO with dwbv-sn-vqboo shunt. No evidence of ASD. Saline contrast study did not show any right to left shunt. Mitral, aortic, and tricuspid valve morphology normal. Subsequent to that patient underwent elective cardioversion, she continues to be in a normal sinus rhythm this morning, feels well overall. Denies any palpitations, no shortness of breath. Objective - Vital Signs Vital signs: Vital Signs Temp 97.3 F L 05/04/17 04:00 Pulse 72 05/04/17 11:52 Resp 16 05/04/17 11:52 BP 106/66 05/04/17 11:52 Pulse Ox 97 05/04/17 11:52 Intake & Output 05/03/17 05/04/17 05/04/17 18:59 06:59 18:59 Intake Total 540 320 Output Total 400 Balance 140 320 Weight 86.4 kg Intake: IV 300 Intake, IV Titration 320 Amount Sodium Chloride 0.9% 1, 320 000 ml @ 20 mls/hr IV . Q24H [facility] Rx#:[id number] Oral 240 0 Output: Urine 400 Other: Voiding Method Toilet Toilet Toilet # Voids 2 - Exam PHYSICAL EXAMINATION: HEENT: Head is atraumatic, normocephalic. Pupils equal, round. Neck is supple. There is no elevated jugular venous pressure. HEART EXAMINATION: Heart S1 and S2 normal CHEST EXAMINATION: Lungs are clear to auscultation and precussion. No chest wall tenderness is noted on palpation or with deep breathing. ABDOMEN: Soft, nontender. Bowel sounds are heard. No organomegaly noted. EXTREMITIES: 2+ peripheral pulses with no evidence of peripheral edema and no calf tenderness noted. NEUROLOGIC patient is awake, alert and oriented -3. . - Labs CBC & Chem 7: 05/01/17 13:49 05/01/17 13:49 Assessment and Plan Plan: Assessment and plan #1 atrial flutter with rapid ventricular response, status post cardioversion, remaining in normal sinus rhythm. #2 status post TAMMIE which did reveal evidence of a small PFO with ybpr-fb-berjw shunt, saline contrast study did not show any right to left shunt. #3 history of TIA #4 hyperlipidemia Plan Patient may be able to be discharged home today. She will be discharged on Eliquis along with flecainide 50 mg one tablet by mouth twice a day. A follow- up appointment will be made in the office with Dr. VC Stevens in one week. DNP note has been reviewed, I agree with a documented findings and plan of care. Patient was seen and examined.
== END 2017-05-04 14:53 | disposition home or self-care (01) | DRG 309 ==
LOC: CATHCVL 10:59 → 6SEL 12:25
PROVIDERS: ADMIT Internal Medicine Cardiovascular Disease; ATTEND Internal Medicine Cardiovascular Disease
PROC: B246ZZ4 Ultrasonography of Right and Left Heart, Transesophageal (ICD-10-PCS; 2017-05-03)
PROC: 5A2204Z Restoration of Cardiac Rhythm, Single (ICD-10-PCS; principal; 2017-05-03 12:00)
DX: I48.92 Unspecified atrial flutter (principal); Q21.1 Atrial septal defect; I48.91 Unspecified atrial fibrillation; Z86.73 Personal history of transient ischemic attack (TIA), and cerebral infarction without residual deficits; G47.30 Sleep apnea, unspecified; E78.2 Mixed hyperlipidemia; F17.200 Nicotine dependence, unspecified, uncomplicated; Z79.82 Long term (current) use of aspirin; Z79.899 Other long term (current) drug therapy
CPT/HCPCS: 80053; 84443; 85025; 92960; 93005; 93312; 93320; 93325; 94640

== ENCOUNTER → 2017-07-02 | Outpatient (CLI) | payer MEDICARE, OTHER ==
[2017-07-02 14:13] VITALS: BP 121/90; PULSE 112; RESP 18; TEMP 98.3
--- NOTE | 2017-07-02 14:30 | P.PN ---
Progress Note - Text Progress Note Date: 07/02/17 Patient returns for followup for chronic back pain. Patient underwent bilateral lumbar RFA in summer 2016, which has provided some relief for interval since procedure and she is requesting repeat ablations as the relief is starting to wear off. Patient continues on no regular pain medications except gabapentin but does use medical marijuana. Patient was diagnosed with A- fib with RVR in May and is now anticoagulated with Eliquis and will soon undergo cardiac ablation. She denies adverse drug effects from medications. Today, pt denies new-onset weakness, bowel/bladder incontinence, or any other signs or symptoms of cauda equina syndrome. There are no signs of acute intoxication, and no indications of medication diversion or overuse. In addition to above, 13-point review of systems is also negative for chest pain , shortness of breath, changes in vision, changes in hearing, new onset weakness , abdominal pain, diarrhea, extreme fatigue, malaise, fever, skin changes, homicidal or suicidal ideation, or bowel or bladder incontinence. Vital Signs: Reviewed in EMR Gen: WDWN, AAOx3, NAD HEENT: NCAT, EOMI, hearing grossly normal Pulm: resp unlabored Abd: soft, NT, ND Neck: supple, trachea midline ROM in flexion lumbar spine: reduced ROM in extension lumbar spine: reduced Lumbar paravertebral tenderness: + Facet loading: + bilateral SI joint tenderness: + R > L Victoriano's test: + R > L Straight leg raise: neg Neuro: CN II-XII grossly intact, muscle strength lower extremities PRESERVED Imaging: Reviewed in EMR Assessment: 1. lumbar spondylosis without myelopathy 2. SIJ dysfunction 3. chronic pain syndrome Plan: 1. Explanation: Opioid and psychological risk scores were reviewed. Diagnoses , prognoses, and multiple treatment options including but not limited to physical therapy, interventional therapies, adjuvant medical therapies, narcotic medication therapies, and surgery were discussed with the patient and all questions were answered to the patient's satisfaction. 2. Opioid agreement: Patient has previously signed narcotic agreement, and was orally counseled to not overuse, abuse, divert, or cell medications, and to take them as prescribed by only 1 healthcare provider. The patient was also counseled to store opioid medications in a safe and preferably locked location. Patient was also counseled against driving or operating heavy equipment while using narcotic medications and also to not use alcohol or any illicit or recreational drugs. The patient verbalized understanding that lack of compliance with any of the above and likely result in failure to renew narcotic prescriptions, possible discharge from the clinic, and possible legal ramifications thereafter if indicated. 3. Counseling: The patient was counseled extensively on SMOKING CESSATION, BODY MASS INDEX, EXERCISE. Specifically, the patient was instructed regarding the importance of smoking cessation, weight control, and exercise in the context of both chronic pain and overall health. 4. Procedures: R lumbar RFA in approximately 8 weeks, patient anticoagulated with Eliquis and to undergo cardiac ablation and will need cardiac clearance due to electrical nature of procedure 5. Consultations: None 6. Investigations: None 7. Medications: none prescribed 8. Disposition: f/u for procedure as scheduled PQRS measures: 1-Patient's medications are documented in the chart. 2-Tobacco use is positive, counseling given 3-Patient has not had a pneumococcal vaccine. 4-Advanced care planning discussed, patient unable to give. 5-Opioid contract NOT signed with the patient. 6-Pain positive, follow-up visit or procedure scheduled 7-Patient's blood pressure measured and documented, and patient will follow up with the primary care due to hypertension. 8-Patient's weight was measured, and body mass index ABOVE the normal limits, and counseling was done. Patient instructed to follow up with PCP. 9-Patient WAS NOT identified as an unhealthy alcohol user.
== END | disposition home or self-care (01) ==
LOC: PNWHC3 13:48
PROVIDERS: ATTEND Anesthesiology
DX: G89.29 Other chronic pain (principal); M47.816 Spondylosis without myelopathy or radiculopathy, lumbar region; M53.3 Sacrococcygeal disorders, not elsewhere classified; M54.9 Dorsalgia, unspecified
CPT/HCPCS: 99211

== ENCOUNTER → 2017-07-18 | Outpatient (CLI) | payer MEDICARE, OTHER ==
--- NOTE | 2017-07-18 16:30 | PN ---
PROGRESS NOTE DATE OF SERVICE: 07/18/2017 61-year-old lady has [facility] of obstructive sleep apnea-hypopnea syndrome. The patient continued to use her CPAP equipment successfully basically every night. Recently she had some hole in the tube of the mask. During the last year in December of 2016, she had a stroke and left side weakness and returned back to normal the same day. When the patient was evaluated in the hospital, she was found to have atrial flutter. She is preparing for cardiac ablation procedure at the present time. MEDICATIONS: Wellbutrin, flecainide, metoprolol, Eliquis, Lipitor, Ventolin, Spiriva, albuterol. I checked the patient's CPAP unit. CPAP pressure is 12 cm of water. Leak is 25 L/minute, which is borderline. Usage is 26/30 nights and 22/30 nights for more than 4 hours, average 5.6 hours. Apnea-hypopnea index is only 2.6, which is in normal range. PHYSICAL EXAM: Patient in no distress BP 112/77, HR 106, R 5 foot and 2, weight 196, BMI 35.8, temp is 98.3, oxygen saturation room air 94%. Oropharynx extremely low position of soft palate. Neck Supple, no JVD. Thyroid is not palpable. LUNGS Clear to percussion and to auscultation. Good air exchange. No wheezing or rhonchi. HEART: S1, S2. Tachycardia. Possibly irregular. Abdomen slightly obese. Bowel sounds are present. No organomegaly appreciated. EXTREMITIES No clubbing or cyanosis. Extremities 1+ bilateral ankle edema. VEST FINISHER Awake, alert, and oriented X3. Cranial nerves 2 to 7 intact. There is no fasciculation or atrophy. noted. No focal deficits observed. IMPRESSION: 1. Obstructive sleep apnea-hypopnea syndrome on control with CPAP at 12 cm of water. Patient demonstrating great compliance with treatment benefitting from treatment. 2. History of atrial flutter. 3. History of stroke with left side weakness in December of 2016. 4. Chronic obstructive pulmonary disease. 5. Low back problems. 6. Status post back fusion. 7. History of bipolar. 8. Status post left knee arthroscopic surgery. 9. The patient quit smoking for about 1 month. PLAN: 1. Patient will continue to use her CPAP equipment every night. 2. Patient needs to replace her mask and tube immediately. 3. Losing weight. 4. Continue not to smoke. 5. No driving if feeling sleepiness. 6. Prescription for all necessary CPAP supplies including mask, tube, filters. Thank you very much for allowing me to participate in management of your patient. Sincerely, Gino Barger MD, PhD, FAASM Diplomat of [place] [employer] [place] [employer] of [facility] [place] MMODL / IJN: [id number] /
== END | disposition home or self-care (01) ==
LOC: SLEEP 13:33
PROVIDERS: ATTEND Internal Medicine
DX: G47.33 Obstructive sleep apnea (adult) (pediatric) (principal); I69.354 Hemiplegia and hemiparesis following cerebral infarction affecting left non-dominant side; F31.9 Bipolar disorder, unspecified; J44.9 Chronic obstructive pulmonary disease, unspecified; Z99.89 Dependence on other enabling machines and devices; Z79.01 Long term (current) use of anticoagulants; Z79.899 Other long term (current) drug therapy; Z79.51 Long term (current) use of inhaled steroids; Z79.1 Long term (current) use of non-steroidal anti-inflammatories (NSAID); Z86.79 Personal history of other diseases of the circulatory system; Z98.1 Arthrodesis status; Z98.890 Other specified postprocedural states; Z87.891 Personal history of nicotine dependence

== ENCOUNTER 2017-07-29 06:52 | Day surgery (SDC) | payer MEDICARE, OTHER ==
[2017-07-22 09:00] VITALS: BMI 34.3
[~2017-07-29 06:52] MED LIST changes: -LACTATED RINGERS 1,000 ML IV SCH; +SODIUM CHLORIDE 0.9% 1,000 ML IV SCH
[2017-07-29 07:39] LABS: Basophils % (A) 1 %; Eosinophils # (A) 0.2 k/uL (0-0.7); Eosinophils % (A) 4 %; HCT 42.6 % (34.0-46.0); HGB 13.9 gm/dL (11.4-16.0); Lymphocytes # (A) 1.9 k/uL (1.0-4.8); Lymphocytes % (A) 32 %; MCH 28.9 pg (25.0-35.0); MCHC 32.5 g/dL (31.0-37.0); MCV 88.9 fL (80.0-100.0); Mean Platelet Volume 7.1; Monocytes # (A) 0.4 k/uL (0-1.0); Monocytes % (A) 6 %; Neutrophils # (A) 3.4 k/uL (1.3-7.7); Neutrophils % (A) 56 %; Platelet Count 199 k/uL (150-450); RDW 14.5 % (11.5-15.5); WBC 6.1 k/uL (3.8-10.6)
[2017-07-29] MEDS ORDERED: PROPOFOL 10 MG/ML 20 ML VIAL IV ONE (08:13)
[2017-07-29] MEDS ORDERED: PHENYLEPHRINE-0.9% NACL SYG 1 MG/10 ML SYRINGE ONE (08:13)
[2017-07-29] MEDS ORDERED: fentaNYL (PF) 50 MCG/ML 2 ML AMP ONE (08:13)
[2017-07-29] MEDS ORDERED: LIDOCAINE 1% INJ 10MG/ML (20 ML MDV) ONE (08:13)
[2017-07-29] MEDS ORDERED: MIDAZOLAM 2 MG/2 ML VIAL ONE (08:13)
[2017-07-29] MEDS ORDERED: SUCCINYLCHOLINE CHLORIDE 100 MG/5 ML SYR IV ONE (08:13)
[2017-07-29] MEDS ORDERED: LIDOCAINE 2% INJ 20 MG/ML SQ ONE (08:44)
[2017-07-29] MEDS: HEPARIN SODIUM IV ONE ×2 (09:20)
[2017-07-29] MEDS: HEPARIN SODIUM (1,000 UNIT/ML) 1,000 UNIT in SODIUM CHLORIDE 0.9% 1,000 ML IRRIGATION ONE ×2 (09:20→12:22)
[2017-07-29] MEDS: SODIUM CHLORIDE IV ONE ×2 (09:20)
--- NOTE | 2017-07-29 11:29 | P.DS ---
Providers Attending physician: Stephane Rascon Primary care physician: [facility] Course: Impression Atrial fibrillation, organized Electrical cardioversion, successful Atrial flutter, symptomatic Status post successful ablation with bidirectional block, isthmus conduction time 170 ms Hypertension Dyslipidemia Normal LV function Long run of nonsustained ventricular tachycardia induced with straight pacing from the RV at cycle length of 210 ms Plan Outpatient reevaluation for ischemia Continue atorvastatin Continue ELIQUIS Continue metoprolol Reduce flecainide to 50 MG twice daily Patient Condition at Discharge: Stable Plan - Discharge Summary Discharge Rx Participant: Yes New Discharge Prescriptions: No Action RX: Tiotropium 18 Mcg/Puff [Spiriva] 1 puff INHALATION RT-DAILY RX: Albuterol Nebulized [Ventolin Nebulized] 2.5 mg INHALATION RT-Q4H PRN PRN Reason: Shortness Of Breath RX: Albuterol Inhaler [Ventolin Hfa Inhaler] 1 - 2 puff INHALATION RT-Q6H PRN PRN Reason: Shortness Of Breath RX: Atorvastatin [Lipitor] 40 mg PO HS buPROPion HCL [Wellbutrin SR] 150 mg PO BID RX: Apixaban [Eliquis] 5 mg PO BID #60 tab RX: Metoprolol Tartrate [Lopressor] 25 mg PO BID RX: Flecainide [Tambocor] 100 mg PO BID Pantoprazole Sodium [Protonix] 20 mg PO DAILY Discharge Medication List RX: Albuterol Inhaler [Ventolin Hfa Inhaler] 1 - 2 puff INHALATION RT-Q6H PRN [History] RX: Albuterol Nebulized [Ventolin Nebulized] 2.5 mg INHALATION RT-Q4H PRN [History] RX: Tiotropium 18 Mcg/Puff [Spiriva] 1 puff INHALATION RT-DAILY 10/08/16 [ History] RX: Atorvastatin [Lipitor] 40 mg PO HS 02/04/17 [History] buPROPion HCL [Wellbutrin SR] 150 mg PO BID 02/19/17 [History] RX: Apixaban [Eliquis] 5 mg PO BID #60 tab 05/04/17 [Rx] Pantoprazole Sodium [Protonix] 20 mg PO DAILY 07/02/17 [History] RX: Flecainide [Tambocor] 100 mg PO BID 07/02/17 [History] RX: Metoprolol Tartrate [Lopressor] 25 mg PO BID 07/02/17 [History]
[2017-07-29] MEDS ORDERED: ACETAMINOPHEN IV (For NPO) 1,000 MG in EMPTY BAG 1 BAG IVPB ONE (11:41)
[2017-07-29] MEDS ORDERED: ACETAMINOPHEN TAB 325 MG TAB PO PRN (11:44)
[2017-07-29] MEDS ORDERED: APIXABAN 5 MG TAB PO ONE (12:30)
--- NOTE | 2017-07-29 12:44 | CE ---
CARDIAC ELECTROPHYSIOLOGY REPORT Mrs. Grullon is a patient Dr. Keisha Stevens who has symptomatic atrial fibrillation as well as symptomatic atrial flutter. She was brought in for atrial flutter ablation. She is on flecainide 100 mg twice daily and is therefore drug refractory. She has symptomatic atrial fibrillation and atrial flutter with shortness of breath. Patient was brought to the EP lab in a fasting state. Written informed consent was obtained prior to the procedure. Both groins were prepped and draped as per protocol. Venous sheaths were placed in the right and left femoral veins. Via these, a long sheath was placed and 2 short sheaths in the femoral veins. Diagnostic catheters were placed. Mapping and ablation catheters were placed and intracardiac echo catheter was placed. Diagnostic catheters in the high right atrium, coronary sinus, His bundle and RV. The catheter was placed in the coronary sinus. It was apparent that although the surface electrograms were very organized. Intracardiac electrograms suggested organized atrial fibrillation. Therefore, a 360 joule biphasic shock was used to cardiovert the patient to sinus rhythm. The rest of the procedure was performed during sinus rhythm. The rest of the procedure was performed in sinus rhythm. IV heparin had been given 5000 bolus. The patient was on uninterrupted apixaban. Sinus cycle length 506 milliseconds, milliseconds, MN 135 milliseconds, QRS 89 milliseconds, AH interval 60 milliseconds, HV interval 50 milliseconds. AV node Wenckebach block 330 milliseconds, VA Wenckebach block 210 milliseconds. Sinus node recovery times were prolonged. During straight pacing, long run of fast nonsustained ventricular tachycardia was induced, which terminated spontaneously. Following that, ventricular extra stimulation of double extrastimuli was performed at 2 drive trains as well as long-short sequences were performed. No VT was induced. Burst stimulation was performed for 500 millisecond down to 250 milliseconds. No VT was induced. Isuprel was started wide open. AV node Wenckebach block improved to 230 milliseconds. A 3-D mapping of the cavotricuspid isthmus in the right atrium was performed. The eustachian ridge and the tricuspid valve identified. RF ablation was performed in the cavotricuspid isthmus for the management of symptomatic atrial flutter. A complete anatomic line of block was made. Good contact force was achieved. Following that with differential pacing, bidirectional block was proven. Isthmus conduction time greater than 170 milliseconds in either direction. At the end of the procedure, intracardiac echo revealed absence of any pericardial effusion. Prior to electrical cardioversion, intracardiac echo revealed absence of any right atrial appendage or left atrial appendage thrombus. The patient tolerated the procedure well without any acute complications. PLAN: Reduce the dose of flecainide to 50 mg twice daily. Continue Eliquis. Continue all other cardiac medications. MMODL / IJN: [id number] /
[2017-07-29] MEDS: APIXABAN 5 MG TAB PO SCH (19:50)
[2017-07-29] MEDS: METOPROLOL TARTRATE 25 MG TAB PO SCH (19:50)
[2017-07-29] MEDS: buPROPion SR 150 MG TABLET.ER PO SCH (19:50)
[2017-07-29] MEDS: FLECAINIDE 50 MG TAB PO SCH (19:50)
[2017-07-29] MEDS: HYDROcodone/APAP 5-325MG 1 EACH TAB PO PRN (19:54)
[2017-07-29] MEDS ORDERED: ATORVASTATIN 40 MG TAB PO SCH (21:00)
[2017-07-29] MEDS: ALBUTEROL NEBULIZED 2.5 MG/3 ML INHALATION PRN (23:06)
[2017-07-30] MEDS: HYDROcodone/APAP 5-325MG 1 EACH TAB PO PRN (03:34)
[2017-07-30] MEDS ORDERED: PANTOPRAZOLE 40 MG TABLET PO SCH (07:30)
[2017-07-30 07:31] VITALS: RESP 18
[2017-07-30] MEDS: ALBUTEROL NEBULIZED 2.5 MG/3 ML INHALATION PRN (07:59)
[2017-07-30] MEDS: buPROPion SR 150 MG TABLET.ER PO SCH (07:59)
[2017-07-30] MEDS: IPRATROPIUM 0.5 MG/2.5 ML NEBU INHALATION SCH ×2 (07:59→11:12)
[2017-07-30] MEDS: APIXABAN 5 MG TAB PO SCH (07:59)
[2017-07-30] MEDS: FLECAINIDE 50 MG TAB PO SCH (07:59)
[2017-07-30] MEDS: METOPROLOL TARTRATE 25 MG TAB PO SCH (07:59)
--- NOTE | 2017-07-30 08:34 | P.DS ---
Providers Attending physician: Stephane Rascon Primary care physician: [facility] Course: Patient is doing well from a cardiac standpoint. She denies any chest discomfort or undue shortness of breath. Her groins of healed up well. Yesterday there was a bit of fleeting but now she is fine did on examination her heart sounds are normal and regular breath sounds are reduced bilaterally. She is a long-standing smoker. Abdomen soft groins of healed well no hematoma. Afebrile 97.5F pulse rate in the 60s, normal respirations, blood pressure 96/ 56. Millimeters of mercury Impression Atrial fibrillation, organized Electrical cardioversion, successful Atrial flutter, symptomatic Status post successful ablation with bidirectional block, isthmus conduction time 170 ms Hypertension Dyslipidemia Normal LV function Long run of nonsustained ventricular tachycardia induced with straight pacing from the RV at cycle length of 210 ms Plan Outpatient reevaluation for ischemia Continue atorvastatin Continue ELIQUIS Continue metoprolol Reduce flecainide to 50 MG twice daily Patient Condition at Discharge: Stable Plan - Discharge Summary Discharge Rx Participant: Yes New Discharge Prescriptions: New RX: Flecainide [Tambocor] 50 mg PO Q12HR #30 tablet Discontinued RX: Flecainide [Tambocor] 100 mg PO BID No Action RX: Tiotropium 18 Mcg/Puff [Spiriva] 1 puff INHALATION RT-DAILY RX: Albuterol Nebulized [Ventolin Nebulized] 2.5 mg INHALATION RT-Q4H PRN PRN Reason: Shortness Of Breath RX: Albuterol Inhaler [Ventolin Hfa Inhaler] 1 - 2 puff INHALATION RT-Q6H PRN PRN Reason: Shortness Of Breath RX: Atorvastatin [Lipitor] 40 mg PO HS buPROPion HCL [Wellbutrin SR] 150 mg PO BID RX: Apixaban [Eliquis] 5 mg PO BID #60 tab RX: Metoprolol Tartrate [Lopressor] 25 mg PO BID Pantoprazole Sodium [Protonix] 20 mg PO DAILY Discharge Medication List RX: Albuterol Inhaler [Ventolin Hfa Inhaler] 1 - 2 puff INHALATION RT-Q6H PRN [History] RX: Albuterol Nebulized [Ventolin Nebulized] 2.5 mg INHALATION RT-Q4H PRN [History] RX: Tiotropium 18 Mcg/Puff [Spiriva] 1 puff INHALATION RT-DAILY 10/08/16 [ History] RX: Atorvastatin [Lipitor] 40 mg PO HS 02/04/17 [History] buPROPion HCL [Wellbutrin SR] 150 mg PO BID 02/19/17 [History] RX: Apixaban [Eliquis] 5 mg PO BID #60 tab 05/04/17 [Rx] Pantoprazole Sodium [Protonix] 20 mg PO DAILY 07/02/17 [History] RX: Metoprolol Tartrate [Lopressor] 25 mg PO BID 07/02/17 [History] RX: Flecainide [Tambocor] 50 mg PO Q12HR #30 tablet 07/29/17 [Rx] Follow up Appointment(s)/Referral(s): Dawson Stevens MD [STAFF PHYSICIAN] - 3 Weeks Activity/Diet/Wound Care/Special Instructions: Post EP study - Ablation instructions 1. Keep access sites dry for 2 days. 2. No heavy lifting or straining for 2 days. 3. Avoid bending the hips repeatedly for 2 days. 4. You may go up and down stairs slowly Call if the following is noted 1. Bleeding, increasing swelling or pain at the access sites. 2. Increasing chest discomfort, especially upon taking a deep breath. 3. Increasing shortness of breath, at rest or with exertion. 4. Undue cough / phlegm 5. Difficulty or pain while swallowing. 6. Pain or change in color in the extremities. 7. Fever, chills, rigors. 8. Increasing headache or neurologic symptoms. 9. Dizziness, fainting, palpitationsPost EP study - Ablation instructions Changes in home medications Reduce flecainide to 50 MG twice daily Continue all other medications unchanged Follow-up with Dr. Stevens in 3 weeks Discharge Disposition: HOME SELF-CARE
[2017-07-30 11:19] VITALS: BP 109/69; TEMP 97.4
[2017-07-30 11:23] VITALS: PULSE 60
== END 2017-07-30 14:35 | disposition home or self-care (01) ==
LOC: CATHEP 06:52 → 3OBS 10:34 → CATHEP 07-30 14:35
PROVIDERS: ATTEND Internal Medicine Clinical Cardiac Electrophysiology
DX: I48.1 Persistent atrial fibrillation (principal); I48.92 Unspecified atrial flutter; I47.2 Ventricular tachycardia; E78.2 Mixed hyperlipidemia; I12.9 Hypertensive chronic kidney disease with stage 1 through stage 4 chronic kidney disease, or unspecified chronic kidney disease; N18.9 Chronic kidney disease, unspecified; Q21.1 Atrial septal defect; J44.9 Chronic obstructive pulmonary disease, unspecified; K21.9 Gastro-esophageal reflux disease without esophagitis; Z82.49 Family history of ischemic heart disease and other diseases of the circulatory system; Z79.01 Long term (current) use of anticoagulants; Z79.82 Long term (current) use of aspirin; Z79.899 Other long term (current) drug therapy; Z88.1 Allergy status to other antibiotic agents; Z88.2 Allergy status to sulfonamides; Z91.09 Other allergy status, other than to drugs and biological substances; F17.210 Nicotine dependence, cigarettes, uncomplicated
CPT/HCPCS: 94640 ×3; 85347; 92960; 93623; 93662; 93613; 93653; 85025; C1894; C1769 ×2; C1893; C1730 ×2; C1759; C1732; J2001 ×2; J2250; S0106 ×2; J3010; J1644; J0131; J2370; J0330; J2704

== ENCOUNTER → 2017-08-20 | Outpatient (CLI) | payer MEDICARE, OTHER ==
[2017-08-20 12:32] VITALS: BP 139/76; PULSE 106; RESP 16
--- NOTE | 2017-08-20 12:43 | P.PN ---
Progress Note - Text Progress Note Date: 08/20/17 Patient returns for followup for chronic back pain with radiation to bilateral legs. Patient underwent bilateral lumbar RFA in summer 2016, which has provided some relief for interval since procedure and she is requesting repeat ablations as the relief is starting to wear off, but there is concern for insurance coverage. Patient continues on no regular pain medications except gabapentin but does use medical marijuana from time to time. She denies adverse drug effects from medications. Today, pt denies new-onset weakness, bowel/bladder incontinence, or any other signs or symptoms of cauda equina syndrome. There are no signs of acute intoxication, and no indications of medication diversion or overuse. In addition to above, 13-point review of systems is also negative for chest pain , shortness of breath, changes in vision, changes in hearing, new onset weakness , abdominal pain, diarrhea, extreme fatigue, malaise, fever, skin changes, homicidal or suicidal ideation, or bowel or bladder incontinence. Vital Signs: Reviewed in EMR Gen: WDWN, AAOx3, NAD HEENT: NCAT, EOMI, hearing grossly normal Pulm: resp unlabored Abd: soft, NT, ND Neck: supple, trachea midline ROM in flexion lumbar spine: reduced ROM in extension lumbar spine: reduced Lumbar paravertebral tenderness: + Facet loading: + bilateral SI joint tenderness: + R > L Victoriano's test: + R > L Straight leg raise: neg Neuro: CN II-XII grossly intact, muscle strength lower extremities PRESERVED Imaging: Reviewed in EMR Assessment: 1. lumbar spondylosis without myelopathy 2. SIJ dysfunction 3. chronic pain syndrome Plan: 1. Explanation: Opioid and psychological risk scores were reviewed. Diagnoses , prognoses, and multiple treatment options including but not limited to physical therapy, interventional therapies, adjuvant medical therapies, narcotic medication therapies, and surgery were discussed with the patient and all questions were answered to the patient's satisfaction. 2. Opioid agreement: no opioids prescribed today 3. Counseling: The patient was counseled extensively on SMOKING CESSATION, BODY MASS INDEX, EXERCISE. Specifically, the patient was instructed regarding the importance of smoking cessation, weight control, and exercise in the context of both chronic pain and overall health. 4. Procedures: caudal LALA (no epidurolysis) 5. Consultations: None 6. Investigations: None 7. Medications: none prescribed 8. Disposition: f/u for procedure as scheduled PQRS measures: 1-Patient's medications are documented in the chart. 2-Tobacco use is positive, counseling given 3-Patient has not had a pneumococcal vaccine. 4-Advanced care planning discussed, patient unable to give. 5-Opioid contract NOT signed with the patient. 6-Pain positive, follow-up visit or procedure scheduled 7-Patient's blood pressure measured and documented, and patient will follow up with the primary care due to hypertension. 8-Patient's weight was measured, and body mass index ABOVE the normal limits, and counseling was done. Patient instructed to follow up with PCP. 9-Patient WAS NOT identified as an unhealthy alcohol user.
== END | disposition home or self-care (01) ==
LOC: PNWHC3 12:14
PROVIDERS: ATTEND Anesthesiology
DX: G89.4 Chronic pain syndrome (principal); M47.816 Spondylosis without myelopathy or radiculopathy, lumbar region; M53.3 Sacrococcygeal disorders, not elsewhere classified
CPT/HCPCS: 99211

== ENCOUNTER 2017-08-29 07:53 | Day surgery (SDC) | payer MEDICARE ==
[2017-08-26 14:50] VITALS: BMI 34.0
[~2017-08-29 07:53] MED LIST changes: +LACTATED RINGERS 1,000 ML IV SCH; -SODIUM CHLORIDE 0.9% 1,000 ML IV SCH
[2017-08-29 08:32] VITALS: TEMP 97.5
[2017-08-29] MEDS ORDERED: LIDOCAINE 1% 20 ML VIAL (10MG/ML) FOR IV START INTRADERMA ONE (08:41)
[2017-08-29] MEDS ORDERED: METOPROLOL TARTRATE 5 MG/5 ML VIAL IVP ONE (08:41)
--- NOTE | 2017-08-29 09:32 | P.PCN ---
Date of Procedure: 08/29/17 Surgeon: Juan Meyer Description of Procedure: PREOPERATIVE DIAGNOSIS: Lumbar post laminectomy syndrome. POSTOPERATIVE DIAGNOSIS: Lumbar post laminectomy syndrome. PROCEDURE: 1. Caudal epidural steroid injection under fluoroscopic guidance. 2. Caudal epidurogram. ANESTHESIA: Local with 1% lidocaine; IV sedation EBL: Negligible PROCEDURE INDICATION: The patient with neuropathic pain radiating distally returns for caudal epidural steroid injection. PROCEDURE DESCRIPTION: The patient was seen and identified in the preoperative area. Risks, benefits, complications, and alternatives were discussed with the patient. The patient agreed to proceed with the procedure and signed the consent. IV was started, and vital signs were stable. Patient was taken to the OR and time out was completed. The patient was placed in the prone position on procedure table and a pillow was placed under the abdomen to reduce lumbar lordosis. The lumbosacral area was prepped and draped in the usual sterile fashion. Critical pause was taken. Vital signs were closely monitored during the procedure. Using lateral fluoroscopy the anterior-posterior plates of the sacrum were identified and the skin and deeper tissues corresponding into sacrococcygeal ligament were anesthetized using approximately 3 mL of 1% lidocaine. Then under fluoroscopy, a 3-1/2-inch 20-gauge Tuohy epidural needle/22-guage 3-1/2 -inch spinal needle was guided through the sacrococcygeal ligament, and into the epidural space. After negative aspiration, a 1 mL of omnipaque-300 contrast dye was injected with excellent epidurogram. Again after negative aspiration for CSF , blood, and with no paresthesias, Kenalog 40mg,2ml of 0.25% preservative free Marcaine with 7ml of preservative free normal saline(total of 10ml)solution was injected with washout of epidurogram. Needle was withdrawn intact. Skin was cleansed, and bandage was applied. Comment: The patient has a history of atrial fibrillation and her heart rate on admission was between 120 and 130/m however it was regular so I think it was sinus tachycardia rather than A. fib. The patient did not take her morning dose of metoprolol and flecainide. We will give her a total of 3 mg of IV metoprolol before and during the procedure. The patient was instructed to go home and take her cardiac medications but she can skip her morning dose of oral metoprolol but she can resume her evening dose of metoprolol tonight. COMPLICATIONS: None. DISPOSITION / PLANS: The patient was placed in a supine position and transferred to the recovery area in a stable condition for observation and was discharged from the recovery room after meeting discharge criteria. Home discharge instructions given to the patient by the staff. The patient was reexamined prior to discharge. The patient will schedule a follow up in the clinic in 2-4 weeks.
[2017-08-29 10:05] VITALS: BP 112/70; PULSE 120; RESP 18
--- NOTE | 2017-08-29 10:41 | FL ---
Fluoroscopy INDICATION: Pain FINDINGS: Fluoroscopy time: 10 seconds. Images obtained: 1. IMPRESSIONS: 1. Documentation of fluoroscopy.
== END 2017-08-29 10:15 | disposition home or self-care (01) ==
LOC: ORPAIN 07:53
PROVIDERS: ATTEND Anesthesiology
DX: M96.1 Postlaminectomy syndrome, not elsewhere classified (principal); G89.4 Chronic pain syndrome; J44.9 Chronic obstructive pulmonary disease, unspecified; M47.26 Other spondylosis with radiculopathy, lumbar region; I48.91 Unspecified atrial fibrillation; Z88.2 Allergy status to sulfonamides; Z88.1 Allergy status to other antibiotic agents; Z91.041 Radiographic dye allergy status; Z79.01 Long term (current) use of anticoagulants
CPT/HCPCS: 62323; J2250; J3301; J3010

== ENCOUNTER 2017-10-01 09:51 | Day surgery (SDC) | payer MEDICARE, OTHER ==
[~2017-10-01 09:51] MED LIST changes: +SODIUM CHLORIDE 0.9% 1,000 ML IV SCH
[2017-10-01 10:37] LABS: Basophils % (A) 0 %; Eosinophils % (A) 0 %; HCT 42.5 % (34.0-46.0); HGB 13.9 gm/dL (11.4-16.0); Lymphocytes # (A) 0.7 k/uL (1.0-4.8); Lymphocytes % (A) 7 %; MCHC 32.8 g/dL (31.0-37.0); MCV 88.3 fL (80.0-100.0); Mean Platelet Volume 6.9; Monocytes # (A) 0.3 k/uL (0-1.0); Monocytes % (A) 3 %; Neutrophils # (A) 8.8 k/uL (1.3-7.7); Neutrophils % (A) 89 %; Platelet Count 215 k/uL (150-450); RBC 4.81 m/uL (3.80-5.40); RDW 13.8 % (11.5-15.5); WBC 9.8 k/uL (3.8-10.6)
[2017-10-01] MEDS ORDERED: HEPARIN SODIUM,PORCINE 10,000 UNIT/ML 1 ML VIAL ONE (10:41)
[2017-10-01] MEDS ORDERED: fentaNYL (PF) 50 MCG/ML 2 ML AMP ONE (10:41)
[2017-10-01] MEDS ORDERED: PROPOFOL 10 MG/ML 20 ML VIAL IV ONE (10:41)
[2017-10-01] MEDS ORDERED: LIDOCAINE 1% INJ 10MG/ML (20 ML MDV) ONE (10:41)
[2017-10-01] MEDS ORDERED: PROTAMINE SULFATE 10 MG/ML 5 ML VIAL IV ONE (10:41)
[2017-10-01] MEDS ORDERED: SUCCINYLCHOLINE CHLORIDE 100 MG/5 ML SYR IV ONE (10:41)
[2017-10-01] MEDS ORDERED: IV FLUID CONTINUATION 950 ML IV ONE (10:41)
[2017-10-01] MEDS ORDERED: MIDAZOLAM 2 MG/2 ML VIAL ONE (10:41)
[2017-10-01 10:47] LABS: Calcium 9.6 mg/dL (8.4-10.2); Potassium 4.5 mmol/L (3.5-5.1)
[2017-10-01] MEDS ORDERED: LIDOCAINE 2% INJ 20 MG/ML SQ ONE (11:22)
[2017-10-01] MEDS ORDERED: HEPARIN SOD,PORK IN 0.45% NACL 25,000 UNIT in 0.45% NACL 1 500ML.BAG IV ONE (11:26)
[2017-10-01] MEDS ORDERED: HEPARIN SODIUM 1,000 UN/ML (10ML VL) IV ONE (12:03)
[2017-10-01] MEDS ORDERED: IOPAMIDOL-370 100ML BTL INJ ONE (13:46)
[2017-10-01] MEDS ORDERED: ACETAMINOPHEN TAB 325 MG TAB PO PRN (14:02)
[2017-10-01] MEDS ORDERED: HYDROcodone/APAP 5-325MG 1 EACH TAB PO PRN (14:02)
--- NOTE | 2017-10-01 14:58 | P.PCN ---
Preoperative Diagnosis: Symptomatic atrial fibrillation Procedures performed ([facility] - CRYO Ablation) Comprehensive diagnostic EP study with attempted arrhythmia induction CS pacing and recording Catheter the mapping of the tachycardia (NOT 3D mapping) Intracardiac echocardiography Pulmonary vein isolation with transseptal and comprehensive EPS, 40112 Electrical cardioversion Procedure details Patient was brought to the EP lab in a fasting state. Written informed consent was obtained prior to the procedure. Procedure performed under general anesthesia After initial muscle relaxant use, muscle relaxants were not given thereafter in order to assess phrenic nerve during procedure Patient prepped and draped as per protocol Full cryo-set up with standard preparation of the cryoablation tools done Femoral Venous access obtained on the right and left groins Sheaths placed Diagnostic catheters for the high right atrium, phrenic nerve stimulation and pacing, His bundle, RV and coronary sinus placed Intracardiac echo catheter placed Long sheath placed in the right atrium Left and right transseptal catheterization performed under intracardiac echo guidance Intravenous heparin with aCT above 300 Later, catheter positioning and balloon positioning under intracardiac echo Baseline measurements AH interval 50 ms HV interval 43 ms Comprehensive diagnostic EP study with drug infusion Atrial pacing performed from the high right atrium and the coronary sinus Sinus recovery times a 600 ms was 1312 AV node Wenckebach block 390 ms VA Wenckebach prompted and 600 ms Transseptal catheterization performed RA pressure 23/14/19 LA pressure 33/9/23 Transseptal catheterization performed with standard sheath. The cryoablation sheath was then placed with an over the wire exchange without any acute complications. All 4 pulmonary veins were isolated in the following sequence: Left superior followed by left inferior followed by right superior followed by right inferior The cryo-ablation balloon was placed at the os of each vein 1.5 mL of IV dye was injected to confirm an occluded vein Goal during cryoablation was to achieve -30C in the first 30 seconds. If not the balloon was repositioned to obtain this result After completion of Cryoblation with durations from 180-240 seconds, entrance block was confirmed with the Attain circular catheter in a roving fashion around the antrum of the pulmonary veins Phrenic nerve pacing was performed from the SVC, right innominate vein area and diaphragm voltage was monitored as well as manually Parameter goals for each cryo freeze -30C by 30 seconds -40C by 60 seconds Mediated between minus 40-55 Thaw time greater than 10 seconds Balloon visualized by intracardiac echo to ensure that the proximal one third was within the left atrium/antrum Left superior pulmonary vein 3 minute cryoablation, time to effect less than 60 seconds Complete isolation Left inferior pulmonary vein 3 minute followed by 2 minute cryoablation Complete isolation Right superior pulmonary vein, during phrenic nerve pacing 3 minute followed by 2 minute, complete isolation Right inferior pulmonary vein, during phrenic nerve pacing 3 minute followed by 2 minute, complete isolation Patient remained in atrial fibrillation/atrial tachycardia cycle length 271 ms Extrapulmonary focus She underwent successful electrical cardioversion with a single 200 J biphasic shock to sinus rhythm At the end of the procedure the Achieve catheter was once again used to check for entrance block Phrenic nerve stimulation was performed to confirm diaphragmatic stimulation the end of the procedure Cine fluoroscopy was performed at the very end of the procedure to confirm movement of both diaphragms with inspiration and expiration Right-sided esophagus, esophagus was deflected away from the right-sided veins At the end of the procedure the patient was extubated Heparin was reversed Venous sheaths were removed and hemostasis assured Result Successful pulmonary vein isolation using cryo-ablation Complete entrance block in all 4 veins confirmed No evidence for phrenic nerve injury Right-sided esophagus requiring deflection away from the right-sided pulmonary veins Extrapulmonary focus of atrial fibrillation/atrial tachycardia My plan is to increase flecainide 100 mg twice daily and if it recurs then proceed with atrial tachycardia ablation/CARTO
[2017-10-01] MEDS ORDERED: ACETAMINOPHEN IV (For NPO) 1,000 MG in EMPTY BAG 1 BAG IVPB ONE (18:00)
[2017-10-01 19:36] VITALS: RESP 16
[2017-10-01] MEDS: METOPROLOL TARTRATE 50 MG TAB PO SCH (20:33)
[2017-10-01] MEDS: FLECAINIDE 50 MG TAB PO SCH (20:34)
[2017-10-01] MEDS: APIXABAN 5 MG TAB PO SCH (20:34)
[2017-10-01] MEDS ORDERED: ATORVASTATIN 40 MG TAB PO SCH (21:00)
[2017-10-02 08:11] LABS: Calcium 9.1 mg/dL (8.4-10.2); Potassium 4.1 mmol/L (3.5-5.1)
[2017-10-02] MEDS: APIXABAN 5 MG TAB PO SCH (08:41)
[2017-10-02] MEDS: METOPROLOL TARTRATE 50 MG TAB PO SCH (08:41)
[2017-10-02] MEDS: FLECAINIDE 50 MG TAB PO SCH (08:41)
[2017-10-02] MEDS ORDERED: PANTOPRAZOLE 40 MG TABLET PO SCH (09:00)
[2017-10-02] MEDS: IPRATROPIUM 0.5 MG/2.5 ML NEBU INHALATION SCH ×2 (09:32→13:26)
[2017-10-02] MEDS ORDERED: RX INFO: IV CONTRAST WAS GIVEN 1 EACH MISC MISCELLANE PRN (10:56)
[2017-10-02] MEDS ORDERED: diphenhydrAMINE 25 MG CAP PO STA (11:02)
[2017-10-02] MEDS ORDERED: predniSONE 50 MG TAB PO STA (11:03)
--- NOTE | 2017-10-02 11:41 | DS ---
DISCHARGE SUMMARY Mary Anne Grullon a 61-year-old female. Gricelda underwent cryoablation of the pulmonary veins yesterday. Veins were completely isolated. However, she does have an extrapulmonary focus of atrial tachycardia, which will need to be addressed in the future separately with RF ablation if she has recurrence on flecainide 100 mg twice daily. She has a sore throat. She has no discomfort. No shortness of breath. No dizziness, lightheadedness. She has no palpitations. She remains in normal rhythm at this time. Abdomen is soft, nontender. Heart sounds are normal. No murmurs or gallops. No rub. Breath sounds are reduced bilaterally. No rhonchi, no crackles. Groins have healed well. There is no hematoma. Extremities are warm. No edema. IMPRESSION: 1. Atrial flutter, status post ablation. 2. Atrial fibrillation, status post cryoablation of the pulmonary veins. 3. Residual extrapulmonary atrial tachycardia. SUGGEST: Increase flecainide to 100 mg twice daily. Continue metoprolol 50 mg twice daily. Continue apixaban 5 mg twice daily. Follow up with Dr. Stevens in a week's time. If in the future she has an atrial tachycardia then this needs to be mapped and ablated with RF ablation. She may go home today. I have given her the new prescriptions. I will get a CT of the chest to ensure that she has no esophageal injury and she will follow Dr. Stevens in a week's time. MMODL / IJN: [id number] /
--- NOTE | 2017-10-02 11:47 | LTR ---
October 02, 2017 Re: Mary Anne Grullon Dear Dr. Cortez: Gricelda underwent successful cryoablation of the pulmonary veins with complete isolation of the pulmonary veins. She will continue apixaban 5 mg twice daily and flecainide and metoprolol. She does have a residual extrapulmonary focus which cannot be addressed with a cryoablation technique and if in the future she has breakthrough episodes of this then she will need mapping and RF ablation specifically for this tachycardia. She will continue to follow up with you and Dr. Stevens as before. Thank you for entrusting us in the care of your patient. Warm regards. Sincerely, MD ASIM RiceL / GABRIELN: [id number] /
[2017-10-02 13:41] VITALS: PULSE 72
[2017-10-02 15:50] VITALS: BP 102/72; TEMP 97.7
--- NOTE | 2017-10-02 16:26 | CT ---
EXAMINATION TYPE: CT chest w con DATE OF EXAM: 10/02/2017 COMPARISON: NONE HISTORY: SOB. Status post cardiac ablation for atrial fibrillation assess for possible esophageal inj ury. CT DLP: 671 mGycm. Automated Exposure Control for Dose Reduction was Utilized. TECHNIQUE: CT scan of the thorax is performed following with IV Contrast, patient injected with 100m l mL of Isovue M300. FINDINGS: LUNGS: The lungs are grossly clear, there is no concerning parenchymal mass or nodule identified. T here is no pleural effusion or pneumothorax seen. The tracheobronchial tree is patent. MEDIASTINUM: There are no greater than 1 cm hilar or mediastinal lymph nodes. There are prominent but subcentimeter prevascular, AP window, subcarinal, and bilateral hilar lymph nodes. No cardiomegaly or pericardial effusion is seen. No suspicious mediastinal air is present. Small hiatal hernia is not ed. OTHER: There is moderate multilevel spurring in the thoracic spine. IMPRESSION: No suspicious acute pulmonary process. No suspicious mediastinal fluid, contrast, or air to suggest injury to esophagus.
== END 2017-10-02 17:36 | disposition home or self-care (01) ==
LOC: CATHEP 09:51 → 3OBS 16:23 → CATHEP 10-02 17:36
PROVIDERS: ATTEND Internal Medicine Clinical Cardiac Electrophysiology
DX: I48.91 Unspecified atrial fibrillation (principal); I47.1 Supraventricular tachycardia; I48.92 Unspecified atrial flutter; E78.5 Hyperlipidemia, unspecified; J44.9 Chronic obstructive pulmonary disease, unspecified; G47.33 Obstructive sleep apnea (adult) (pediatric); K21.9 Gastro-esophageal reflux disease without esophagitis; F41.9 Anxiety disorder, unspecified; Z86.73 Personal history of transient ischemic attack (TIA), and cerebral infarction without residual deficits; Z79.01 Long term (current) use of anticoagulants; Z79.899 Other long term (current) drug therapy; Z88.2 Allergy status to sulfonamides; Z88.1 Allergy status to other antibiotic agents; Z91.041 Radiographic dye allergy status; F17.210 Nicotine dependence, cigarettes, uncomplicated
CPT/HCPCS: 94640 ×2; 92960; 93662; 93609; 93656; 80048 ×2; 85025; 71260; C1769 ×4; C1894 ×2; C1730 ×3; C1759; C1893; C1733; C1766; J2001; J1644 ×2; J7512; Q9967 ×2

== ENCOUNTER 2017-10-04 09:23 | Observation (INO) | payer MEDICARE, OTHER ==
--- NOTE | 2017-10-04 10:24 | ED ---
General Adult HPI - General Chief complaint: Shortness of Breath Stated complaint: SOB Time Seen by Provider: 10/04/17 09:33 Source: patient, RN notes reviewed, old records reviewed Mode of arrival: wheelchair Limitations: no limitations - History of Present Illness Initial comments: This is a 61-year-old female to the ER for evaluation. Patient resents today for evaluation regarding multiple nonspecific symptoms, weakness chills warmth and chills or legs. Bilateral lower extremity numbness and tingling. Patient does have significant heart history including A. fib and flutter. Patient recently 3 days ago had cardiac ablation, symptoms started last night. Patient denies recent fevers no nausea vomiting or diarrhea. Patient did increase her flecainide no other medication changes - Related Data Home Medications Medication Instructions Recorded Confirmed Albuterol Inhaler [Ventolin Hfa 2 puff INHALATION RT-Q6H PRN 10/08/16 10/04/17 Inhaler] Albuterol Nebulized [Ventolin 2.5 mg INHALATION RT-Q4H PRN 10/08/16 10/04/17 Nebulized] Tiotropium 18 Mcg/Puff [Spiriva] 1 puff INHALATION RT-DAILY 10/08/16 10/04/17 Atorvastatin [Lipitor] 40 mg PO HS 02/04/17 10/04/17 buPROPion HCL [Wellbutrin SR] 150 mg PO DAILY 02/19/17 10/04/17 Metoprolol Tartrate [Lopressor] 25 mg PO BID 07/02/17 10/04/17 Flecainide [Tambocor] 50 mg PO Q12HR 10/04/17 10/04/17 Previous Rx's Medication Instructions Recorded Apixaban [Eliquis] 5 mg PO BID #60 tab 05/04/17 Allergies Allergy/AdvReac Type Severity Reaction Status Date / Time Iodinated Contrast- Oral and Allergy Rash/Hives Verified 10/04/17 09:49 IV Dye [Iodinated Contrast Media - Oral and] sulfamethoxazole Allergy Itching Verified 10/04/17 09:49 [From Bactrim] trimethoprim [From Bactrim] Allergy Itching Verified 10/04/17 09:49 Review of Systems ROS Statement: Those systems with pertinent positive or pertinent negative responses have been documented in the HPI. ROS Other: All systems not noted in ROS Statement are negative. Past Medical History Past Medical History: Atrial Fibrillation, Atrial Flutter, COPD, CVA/TIA, Fibromyalgia, Hyperlipidemia, Sleep Apnea/CPAP/BIPAP Additional Past Medical History / Comment(s): SEE DR BRYANT'S H&P, BURNING/ NUMBESS IN QUAD MUSCLES; neuropathy, states thinks she has Fibromyalgia. Uses CPAP machine, ablation History of Any Multi-Drug Resistant Organisms: None Reported Past Surgical History: Ablation, Back Surgery, Cardiac Ablation, Orthopedic Surgery Additional Past Surgical History / Comment(s): cardiac ablation 07/29/17 Back surgery X2, hand surgery, left knee arthoscopy. Pain Procedures. Past Anesthesia/Blood Transfusion Reactions: No Reported Reaction Past Psychological History: Anxiety, Depression Smoking Status: Current every day smoker Past Alcohol Use History: Rare Past Drug Use History: Marijuana, Opiates - Past Family History Father Family Medical History: Cancer Mother Family Medical History: Myocardial Infarction ([place]) Additional Family Medical History / Comment(s): 2 stents in heart. General Exam - General Exam Comments Initial Comments: Bilateral groin swelling and bruising Limitations: no limitations General appearance: alert, in no apparent distress Head exam: Present: atraumatic, normocephalic, normal inspection Eye exam: Present: normal appearance, PERRL, EOMI. Absent: scleral icterus, conjunctival injection, periorbital swelling ENT exam: Present: normal exam, mucous membranes moist Neck exam: Present: normal inspection. Absent: tenderness, meningismus, lymphadenopathy Respiratory exam: Present: normal lung sounds bilaterally. Absent: respiratory distress, wheezes, rales, rhonchi, stridor Cardiovascular Exam: Present: regular rate, normal rhythm, normal heart sounds. Absent: systolic murmur, diastolic murmur, rubs, gallop, clicks GI/Abdominal exam: Present: soft, normal bowel sounds. Absent: distended, tenderness, guarding, rebound, rigid Extremities exam: Present: normal inspection, full ROM, normal capillary refill. Absent: tenderness, pedal edema, joint swelling, calf tenderness Back exam: Present: normal inspection Neurological exam: Present: alert, oriented X3, CN II-XII intact Psychiatric exam: Present: normal affect, normal mood Skin exam: Present: warm, dry, intact, normal color. Absent: rash Course Vital Signs 10/04/17 10/04/17 10/04/17 09:28 10:13 12:05 Temperature 98.7 F Pulse Rate 75 83 80 Respiratory 22 22 Rate Blood Pressure 117/72 108/62 O2 Sat by Pulse 91 L 98 Oximetry 10/04/17 10/04/17 10/04/17 12:20 12:30 13:27 Temperature 99 F Pulse Rate 84 83 85 Respiratory 16 16 Rate Blood Pressure 118/64 109/59 O2 Sat by Pulse 98 96 Oximetry 10/04/17 14:06 Temperature 98.8 F Pulse Rate 81 Respiratory 20 Rate Blood Pressure 109/64 O2 Sat by Pulse 96 Oximetry - Reevaluation(s) Reevaluation #1: A she had worsening breathing symptoms here in the emergency room, did improve with breathing treatments prolonged EKG Findings - EKG Comments: EKG Findings:: EKG shows normal sinus rhythm rate of 80, TX 1:30, QRS 78, QTc 461 Medical Decision Making - Medical Decision Making 61 female the ER for evaluation of shortness of breath numbness and tingling, not feeling well. Patient has ultrasound lower extremities which are negative. Chest x-rays negative for any pneumonia, patient recent cardiac ablation troponin is elevated which we will trend, patient has severe COPD exacerbation concurrently, given steroids and breathing treatment here in the ER with mild improvement - Lab Data Result diagrams: 10/04/17 10:39 10/04/17 10:39 Lab Results 10/04/17 10/04/17 10/04/17 Range/Units 10:39 10:39 10:39 WBC 15.0 H (3.8-10.6) k/uL RBC 4.04 (3.80-5.40) m/uL Hgb 12.0 (11.4-16.0) gm/dL Hct 35.0 (34.0-46.0) % MCV 86.7 (80.0-100.0) fL MCH 29.7 (25.0-35.0) pg MCHC 34.3 (31.0-37.0) g/dL RDW 13.9 (11.5-15.5) % Plt Count 177 (150-450) k/uL Neutrophils % 83 % Lymphocytes % 11 % Monocytes % 4 % Eosinophils % 1 % Basophils % 0 % Neutrophils # 12.4 H (1.3-7.7) k/uL Lymphocytes # 1.7 (1.0-4.8) k/uL Monocytes # 0.6 (0-1.0) k/uL Eosinophils # 0.1 (0-0.7) k/uL Basophils # 0.0 (0-0.2) k/uL PT (9.0-12.0) sec INR (<1.2) APTT (22.0-30.0) sec D-Dimer (<0.60) mg/L FEU Sodium 139 (137-145) mmol/L Potassium 4.1 (3.5-5.1) mmol/L Chloride 104 (98-107) mmol/L Carbon Dioxide 27 (22-30) mmol/L Anion Gap 8 mmol/L BUN 27 H (7-17) mg/dL Creatinine 0.92 (0.52-1.04) mg/dL Est GFR (CKD-EPI)AfAm 79 (>60 ml/min/1.73 sqM) Est GFR (CKD-EPI)NonAf 69 (>60 ml/min/1.73 sqM) Glucose 102 H (74-99) mg/dL Calcium 9.1 (8.4-10.2) mg/dL Magnesium 1.6 (1.6-2.3) mg/dL Total Bilirubin 0.7 (0.2-1.3) mg/dL AST 72 H (14-36) U/L ALT 146 H (9-52) U/L Alkaline Phosphatase 109 (38-126) U/L Total Creatine Kinase 45 (30-135) U/L CK-MB (CK-2) 0.9 (0.0-2.4) ng/mL CK-MB (CK-2) Rel Index 2.0 Troponin I 1.420 H* (0.000-0.034) ng/mL Total Protein 6.4 (6.3-8.2) g/dL Albumin 3.4 L (3.5-5.0) g/dL Lipase 177 (23-300) U/L 10/04/17 Range/Units 10:39 WBC (3.8-10.6) k/uL RBC (3.80-5.40) m/uL Hgb (11.4-16.0) gm/dL Hct (34.0-46.0) % MCV (80.0-100.0) fL MCH (25.0-35.0) pg MCHC (31.0-37.0) g/dL RDW (11.5-15.5) % Plt Count (150-450) k/uL Neutrophils % % Lymphocytes % % Monocytes % % Eosinophils % % Basophils % % Neutrophils # (1.3-7.7) k/uL Lymphocytes # (1.0-4.8) k/uL Monocytes # (0-1.0) k/uL Eosinophils # (0-0.7) k/uL Basophils # (0-0.2) k/uL PT 10.1 (9.0-12.0) sec INR 1.0 (<1.2) APTT 24.5 (22.0-30.0) sec D-Dimer 0.63 H (<0.60) mg/L FEU Sodium (137-145) mmol/L Potassium (3.5-5.1) mmol/L Chloride (98-107) mmol/L Carbon Dioxide (22-30) mmol/L Anion Gap mmol/L BUN (7-17) mg/dL Creatinine (0.52-1.04) mg/dL Est GFR (CKD-EPI)AfAm (>60 ml/min/1.73 sqM) Est GFR (CKD-EPI)NonAf (>60 ml/min/1.73 sqM) Glucose (74-99) mg/dL Calcium (8.4-10.2) mg/dL Magnesium (1.6-2.3) mg/dL Total Bilirubin (0.2-1.3) mg/dL AST (14-36) U/L ALT (9-52) U/L Alkaline Phosphatase (38-126) U/L Total Creatine Kinase (30-135) U/L CK-MB (CK-2) (0.0-2.4) ng/mL CK-MB (CK-2) Rel Index Troponin I (0.000-0.034) ng/mL Total Protein (6.3-8.2) g/dL Albumin (3.5-5.0) g/dL Lipase (23-300) U/L - Radiology Data Radiology results: report reviewed (Ultrasound bilateral groin is negative,'s chest x-rays negative), image reviewed Critical Care Time Critical Care Time: Yes Total Critical Care Time: 31 Disposition Clinical Impression: Acute exacerbation of chronic obstructive airways disease Disposition: ADMITTED IP TO THIS HOSP Condition: Fair
[2017-10-04 10:52] LABS: Basophils % (A) 0 %; Eosinophils # (A) 0.1 k/uL (0-0.7); Eosinophils % (A) 1 %; Lymphocytes # (A) 1.7 k/uL (1.0-4.8); Lymphocytes % (A) 11 %; MCH 29.7 pg (25.0-35.0); MCHC 34.3 g/dL (31.0-37.0); MCV 86.7 fL (80.0-100.0); Mean Platelet Volume 6.6; Monocytes # (A) 0.6 k/uL (0-1.0); Monocytes % (A) 4 %; Neutrophils # (A) 12.4 k/uL (1.3-7.7); Neutrophils % (A) 83 %; Platelet Count 177 k/uL (150-450); RBC 4.04 m/uL (3.80-5.40); RDW 13.9 % (11.5-15.5)
[2017-10-04 11:04] LABS: D-Dimer 0.63 mg/L FEU (<0.60); Partial Thromboplastin Time 24.5 sec (22.0-30.0); Prothrombin Time 10.1 sec (9.0-12.0)
[2017-10-04 11:10] LABS: Albumin 3.4 g/dL (3.5-5.0); Calcium 9.1 mg/dL (8.4-10.2); Magnesium 1.6 mg/dL (1.6-2.3); Potassium 4.1 mmol/L (3.5-5.1); Total Bilirubin 0.7 mg/dL (0.2-1.3); Total Protein 6.4 g/dL (6.3-8.2)
[2017-10-04 11:25] LABS: Creatine Kinase MB 0.9 ng/mL (0.0-2.4)
[2017-10-04 11:33] LABS: Troponin I 1.42 ng/mL (0.000-0.034)
--- NOTE | 2017-10-04 11:47 | US ---
EXAMINATION TYPE: US lower ext pseudo artery RT DATE OF EXAM: 10/04/2017 COMPARISON: NONE CLINICAL HISTORY: Cardiac ablation 4 days prior EXAM PERFORMED: Grayscale and color Doppler duplex imaging performed of the groin, post cardiac ann marie ter to assess for pseudoaneurysm. SIDE PERFORMED: right Color and Waveform Doppler performed to assess for the presence of pseudoaneurysm; Is there ultrasound evidence of a pseudoaneurysm: no Is there evidence of AV shunting: no Is there a fluid collection present: no No suspicious collections are evident. IMPRESSION: 1. Normal right inguinal ultrasound.
--- NOTE | 2017-10-04 11:48 | US ---
EXAMINATION TYPE: US lower ext pseudo artery LT DATE OF EXAM: 10/04/2017 COMPARISON: NONE CLINICAL HISTORY: Cardiac . Ablation. EXAM PERFORMED: Grayscale and color Doppler duplex imaging performed of the groin, post cardiac ann marie ter to assess for pseudoaneurysm. SIDE PERFORMED: Left Color and Waveform Doppler performed to assess for the presence of pseudoaneurysm; Is there ultrasound evidence of a pseudoaneurysm: no Is there evidence of AV shunting: no Is there a fluid collection present: no No suspicious collections are evident. IMPRESSION: 1. Normal left inguinal ultrasound.
[2017-10-04] MEDS ORDERED: IPRATROPIUM-ALBUTEROL 3 ML NEB INHALATION STA (11:58)
--- NOTE | 2017-10-04 12:49 | XR ---
EXAMINATION TYPE: XR chest 2V DATE OF EXAM: 10/04/2017 COMPARISON: NONE INDICATION: Chest pain and dyspnea TECHNIQUE: Frontal and lateral views of the chest are obtained. FINDINGS: The heart size is normal. The pulmonary vasculature is normal. The lungs are clear. IMPRESSION: 1. No acute pulmonary process.
[2017-10-04] MEDS ORDERED: NITROGLYCERIN SL TABS 0.4 MG TAB SUBLINGUAL PRN (13:27)
[2017-10-04] MEDS ORDERED: methylPREDNISolone SOD SUCCI 125 MG/2 ML VIAL IV STA (13:27)
[2017-10-04] MEDS ORDERED: ASPIRIN 81 MG PO STA (13:27)
[2017-10-04] MEDS ORDERED: MORPHINE SULFATE 4MG/4ML SYRG IV PRN (13:27)
[2017-10-04] MEDS ORDERED: MORPHINE SULFATE 4MG/4ML SYRG IVP PRN (15:43)
[2017-10-04] MEDS ORDERED: ONDANSETRON 4 MG/2 ML VIAL IVP PRN (15:43)
[2017-10-04] MEDS ORDERED: ACETAMINOPHEN TAB 325 MG TAB PO PRN (15:43)
[2017-10-04] MEDS ORDERED: MORPHINE ORAL SOLN 10 MG/5 ML CUP PO PRN (15:48)
--- NOTE | 2017-10-04 15:56 | P.HPIM ---
History of Present Illness H&P Date: 10/04/17 Chief Complaint: shortness of breath 61 years old female with past medical history of atrial fibrillation, atrial flutter last cardioversion done on 10/02 patient currently in sinus rhythm , history of COPD, sleep apnea on CPAP, history of stroke, hyperlipidemia presents in with acute onset of shortness of breath that started yesterday night before patient went to sleep. Patient woke up this morning with increased shortness of breath, shallow breathing, chest pain the last a few seconds. Chest pain was in the left side of the chest nonradiating pressure- like heaviness, not associated with sweating resolved by itself. Patient denies any cough or sputum production. She denies any fever or chills. Vitals are stable afebrile, respiratory rate 16, blood pressure 118/64. Patient is admitted for acute bronchitis. Labs evaluated suggested of increased LFTs 72 AST troponin 1.42 which could be secondary to recent intervention. EKG was done that suggested normal sinus rhythm with some Q waves noted in the 3. Troponin every 6 ordered. Repeat EKG tomorrow morning. Cardiology consult placed. Pulmonary consult placed Review of Systems Constitutional: Denies chills, Denies fever, Denies lethargy, Denies malaise, Denies poor appetite, Denies weakness, Denies weight loss Eyes: denies decreased vision, denies diplopia, denies discharge, denies pain Ears: deny: decreased hearing Ears, nose, mouth and throat: Denies dental pain, Denies headache, Denies nasal discharge, Denies nose pain Cardiovascular: Endorses chest pain, Denies decreased exercise tolerance, Denies edema, Denies high blood pressure, endorses irregular heart beat, endorses palpitations, Denies paroxysmal nocturnal dyspnea, endorses rapid heart beat, endorses shortness of breath Respiratory: Denies congestion, denies cough, Denies cough with sputum, endorses dyspnea, Denies home oxygen, endorses wheezing Gastrointestinal: Denies abdominal pain, Denies change in bowel habits, Denies coffee ground emesis, Denies early satiety, Denies excessive gas, Denies heartburn, Denies hematemesis, Denies hematochezia, Denies loss of appetite, Denies nausea, Denies vomiting Genitourinary: Denies dysuria, Denies flank pain, Denies kidney stones, Denies menorrhagia, Denies urgency, Denies urinary frequency Musculoskeletal: Denies gait dysfunction, Denies limitation of motion, Denies morning stiffness, Denies muscle cramps Integumentary: Denies rash, Denies wounds, Denies brittle nails, Denies change in hair/nails, Denies darkening of skin Neurological: Denies balance difficulties, Denies change in speech, Denies double vision, Denies gait dysfunction, Denies loss of vision, Denies motor disturbance, Denies numbness, Denies paralysis, Denies paresthesias, Denies seizures Psychiatric: Denies anxiety, Denies depression Endocrine: Denies excessive sweating, Denies excessive thirst, Denies high blood sugars, Denies palpitations Hematologic/Lymphatic: Denies easy bruising, Denies lymphadenopathy Past Medical History Past Medical History: Atrial Fibrillation, Atrial Flutter, COPD, CVA/TIA, Fibromyalgia, Hyperlipidemia, Sleep Apnea/CPAP/BIPAP Additional Past Medical History / Comment(s): ALEXANDER with CPap, occasionally burning bilateral quad muscles. History of Any Multi-Drug Resistant Organisms: None Reported Past Surgical History: Ablation, Back Surgery, Cardiac Ablation, Orthopedic Surgery Additional Past Surgical History / Comment(s): 10/01/17 Cryoablation, 07/29/17 cardiac ablation, R hand injury with surgery, L knee arthroscopy, multiple pain clinic procedures. 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 Pt has a nebulizer and Cpap machine. She is independent. Smoking Status: Current every day smoker Past Alcohol Use History: Rare Additional Past Alcohol Use History / Comment(s): Has been smoking 1/2 PPD on and off for 41 yrs. Only smokes 6 cigarettes a day currently Past Drug Use History: Marijuana, Opiates Additional Drug Use History / Comment(s): Uses Medical Marijuana ocassionally, current use of cbd oil for pain. Hx of past opiod abuse, has been off them X1 yr. - Past Family History Father Family Medical History: Cancer Additional Family Medical History / Comment(s): Father had mesothelioma, lung cancer. Mother Family Medical History: Myocardial Infarction ([place]) Additional Family Medical History / Comment(s): 2 stents in heart. Mother is 95 yrs old. Medications and Allergies Home Medications Medication Instructions Recorded Confirmed Type Albuterol Inhaler [Ventolin Hfa 2 puff INHALATION RT-Q6H PRN 10/08/16 10/04/17 History Inhaler] Albuterol Nebulized [Ventolin 2.5 mg INHALATION RT-Q4H PRN 10/08/16 10/04/17 History Nebulized] Tiotropium 18 Mcg/Puff [Spiriva] 1 puff INHALATION RT-DAILY 10/08/16 10/04/17 History Atorvastatin [Lipitor] 40 mg PO HS 02/04/17 10/04/17 History buPROPion HCL [Wellbutrin SR] 150 mg PO DAILY 02/19/17 10/04/17 History Apixaban [Eliquis] 5 mg PO BID #60 tab 05/04/17 10/04/17 Rx Metoprolol Tartrate [Lopressor] 25 mg PO BID 07/02/17 10/04/17 History Flecainide [Tambocor] 50 mg PO Q12HR 10/04/17 10/04/17 History Allergies Allergy/AdvReac Type Severity Reaction Status Date / Time Iodinated Contrast- Oral and Allergy Rash/Hives Verified 10/04/17 09:49 IV Dye [Iodinated Contrast Media - Oral and] sulfamethoxazole Allergy Itching Verified 10/04/17 09:49 [From Bactrim] trimethoprim [From Bactrim] Allergy Itching Verified 10/04/17 09:49 Physical Exam Vitals: Vital Signs Temp Pulse Resp BP Pulse Ox 10/04/17 14:06 98.8 F 81 20 109/64 96 10/04/17 13:27 99 F 85 16 109/59 96 10/04/17 12:30 83 16 118/64 98 10/04/17 12:20 84 10/04/17 12:05 80 10/04/17 10:13 83 22 108/62 98 10/04/17 09:28 98.7 F 75 22 117/72 91 L Intake and Output 10/04/17 10/04/17 10/04/17 06:59 14:59 22:59 Other: Weight 87.543 kg - Constitutional General appearance: cooperative, moderate acute distress, obese - EENT Eyes: anicteric sclerae, PERRLA, normal appearance ENT: hearing grossly normal - Neck Neck: no lymphadenopathy, normal ROM, no other, no rigidity, no stridor, no thyromegaly - Respiratory Respiratory: bilateral: Decreased air entry bilaterally. Significant wheezing both upper and lower lobes. - Cardiovascular Rhythm: regular Heart sounds: normal: S1, S2 Abnormal Heart Sounds: no systolic murmur, no diastolic murmur, no rub, no S3 Gallop, no S4 Gallop, no click, no other - Gastrointestinal General gastrointestinal: normal bowel sounds, soft - Integumentary Integumentary: no rash - Neurologic Neurologic: CNII-XII intact - Musculoskeletal Musculoskeletal: gait normal, strength equal bilaterally - Psychiatric Psychiatric: A&O x's 3, appropriate affect Results CBC & Chem 7: 10/04/17 10:39 10/04/17 10:39 Labs: Abnormal Lab Results - Last 24 Hours (Table) 10/04/17 10/04/17 10/04/17 Range/Units 10:39 10:39 10:39 WBC 15.0 H (3.8-10.6) k/uL Neutrophils # 12.4 H (1.3-7.7) k/uL D-Dimer (<0.60) mg/L FEU BUN 27 H (7-17) mg/dL Glucose 102 H (74-99) mg/dL AST 72 H (14-36) U/L ALT 146 H (9-52) U/L Troponin I 1.420 H* (0.000-0.034) ng/mL Albumin 3.4 L (3.5-5.0) g/dL 10/04/17 Range/Units 10:39 WBC (3.8-10.6) k/uL Neutrophils # (1.3-7.7) k/uL D-Dimer 0.63 H (<0.60) mg/L FEU BUN (7-17) mg/dL Glucose (74-99) mg/dL AST (14-36) U/L ALT (9-52) U/L Troponin I (0.000-0.034) ng/mL Albumin (3.5-5.0) g/dL Thrombosis Risk Factor Assmnt - DVT/VTE Prophylaxis DVT/VTE Prophylaxis: Pharmacologic Prophylaxis ordered - Choose All That Apply Any of the Below Risk Factors Present?: Yes Each Factor Represents 1 point: Abnormal pulmonary function (COPD), Age 41-60 years, Obesity (BMI >25) Other Risk Factors: No Other congenital or acquired thrombophilia - If yes, enter type in comment: No Thrombosis Risk Factor Assessment Total Risk Factor Score: 3 Thrombosis Risk Factor Assessment Level: Moderate Risk Assessment and Plan Plan: #1 atrial flutter/atrial fibrillation. Underwent cardiac [facility] on 10[facility]02[facility] Troponin increased likely secondary to recent intervention. The patient is also endorsing chest pain that resolved by itself. Continue flecainide and metoprolol 20Tropon milligrams twice a day in trend every 6. Cardiology consulted. Continue eliquis #2 shortness of breath likely secondary to COPD exacerbation/acute bronchitis. Continue Solu-Medrol IV 60 every 6 hours. Encourage incentive spirometry. Sputum culture. DuoNeb as needed for shortness of breath. Ceftriaxone for acute bronchitis. Pulmicort twice a day. Pulmonary consulted. #3 hyperlipidemia continue atorvastatin 40 mg #4Anxiety continue Wellbutrin 150 mg daily #5 GI prophylaxis with Pepcid DVT prophylaxis with eliquis Disposition patient need 1-2 inpatient nights for stabilization CODE STATUS full code
[2017-10-04 16:37] LABS: Glucose,Whole Blood 168 mg/dL (75-99)
[2017-10-04] MEDS: IPRATROPIUM-ALBUTEROL 3 ML NEB INHALATION SCH ×2 (16:41→20:50)
[2017-10-04] MEDS: cefTRIAXone IN SWFI 1,000 MG/10 ML SYRINGE IVP SCH (17:07)
[2017-10-04] MEDS: FAMOTIDINE 20 MG TAB PO SCH (17:08)
[2017-10-04] MEDS: methylPREDNISolone SOD SUCCI 125 MG/2 ML VIAL IV SCH ×2 (17:08→22:53)
[2017-10-04] MEDS: INSULIN ASPART 100 UNIT/ML 1 ML 10 ML VIAL SQ SCH ×2 (17:08→21:12)
[2017-10-04 17:17] LABS: Creatine Kinase MB 0.7 ng/mL (0.0-2.4)
[2017-10-04 17:22] LABS: Troponin I 1.07 ng/mL (0.000-0.034)
[2017-10-04 20:45] LABS: Glucose,Whole Blood 193 mg/dL (75-99)
[2017-10-04] MEDS: BUDESONIDE 1 MG/2 ML NEBU INHALATION SCH (20:50)
[2017-10-04] MEDS ORDERED: HEPARIN SODIUM,PORCINE 5,000 UNIT/ML 1 ML VIAL SQ SCH (21:00)
[2017-10-04] MEDS: FLECAINIDE 50 MG TAB PO SCH (21:11)
[2017-10-04] MEDS: APIXABAN 5 MG TAB PO SCH (21:11)
[2017-10-04] MEDS: METOPROLOL TARTRATE 25 MG TAB PO SCH (21:11)
[2017-10-04] MEDS: ATORVASTATIN 40 MG TAB PO SCH (21:11)
[2017-10-04 23:31] LABS: Creatine Kinase MB 0.7 ng/mL (0.0-2.4)
[2017-10-04 23:34] LABS: Troponin I 0.788 ng/mL (0.000-0.034)
[2017-10-05 06:03] LABS: Hemoglobin A1C 5.5 % (4.0-6.0)
[2017-10-05 06:36] LABS: Basophils % (A) 0 %; Eosinophils % (A) 0 %; HGB 11.8 gm/dL (11.4-16.0); Lymphocytes # (A) 0.6 k/uL (1.0-4.8); Lymphocytes % (A) 7 %; MCHC 31.9 g/dL (31.0-37.0); Mean Platelet Volume 7.1; Monocytes # (A) 0.2 k/uL (0-1.0); Monocytes % (A) 2 %; Neutrophils # (A) 8.8 k/uL (1.3-7.7); Neutrophils % (A) 91 %; Platelet Count 173 k/uL (150-450); RBC 4.07 m/uL (3.80-5.40); RDW 13.9 % (11.5-15.5); WBC 9.8 k/uL (3.8-10.6)
[2017-10-05 06:42] LABS: Glucose,Whole Blood 159 mg/dL (75-99)
[2017-10-05 06:49] LABS: Albumin 3.5 g/dL (3.5-5.0); Calcium 9.5 mg/dL (8.4-10.2); Potassium 4.2 mmol/L (3.5-5.1); Total Bilirubin 0.5 mg/dL (0.2-1.3); Total Protein 6.5 g/dL (6.3-8.2)
[2017-10-05] MEDS: methylPREDNISolone SOD SUCCI 125 MG/2 ML VIAL IV SCH ×2 (06:53→12:05)
[2017-10-05] MEDS: INSULIN ASPART 100 UNIT/ML 1 ML 10 ML VIAL SQ SCH ×4 (06:54→21:20)
--- NOTE | 2017-10-05 06:55 | XR ---
EXAMINATION TYPE: XR chest 2V DATE OF EXAM: 10/05/2017 HISTORY: Shortness of breath. REFERENCE: Previous study dated 10/04/2017. FINDINGS: Heart size is upper limits of normal. The lungs are clear. Pleural spaces are clear. IMPRESSION: BORDERLINE CARDIOMEGALY.
[2017-10-05] MEDS ORDERED: NON-FORMULARY DRUG (Tiotropium 18 Mcg/Puff 1 PUFF) INHALATION SCH (08:00)
[2017-10-05] MEDS: METOPROLOL TARTRATE 25 MG TAB PO SCH ×2 (08:46→20:02)
[2017-10-05] MEDS: FAMOTIDINE 20 MG TAB PO SCH (08:46)
[2017-10-05] MEDS: buPROPion SR 150 MG TABLET.ER PO SCH (08:46)
[2017-10-05] MEDS: NICOTINE 21MG/24HR PATCH TRANSDERM SCH (08:46)
[2017-10-05] MEDS: APIXABAN 5 MG TAB PO SCH ×2 (08:47→20:02)
[2017-10-05] MEDS: FLECAINIDE 50 MG TAB PO SCH ×2 (08:47→20:02)
[2017-10-05] MEDS ORDERED: ASPIRIN 325 MG TAB PO SCH (09:00)
[2017-10-05] MEDS: BUDESONIDE 1 MG/2 ML NEBU INHALATION SCH ×2 (09:00→19:15)
[2017-10-05] MEDS: IPRATROPIUM-ALBUTEROL 3 ML NEB INHALATION SCH ×4 (09:00→19:15)
--- NOTE | 2017-10-05 10:21 | P.CRDCN ---
History of Present Illness Consult date: 10/05/17 Requesting physician: Brooke Aviles Consult reason: chest pain Chief complaint: Shortness of breath and chest discomfort History of present illness: This is a pleasant 61-year-old female who follows regularly with Dr. Stevens in the office, she has history of hyperlipidemia, she also has history of atrial flutter and atrial fibrillation, she was recently in the hospital at which time she underwent ablation procedure with Dr. Rascon. He underwent successful pulmonary vein isolation using cryoablation. Patient also has history of COPD, continues to smoke 2-3 cigarettes per day, questionable history of prior TIA, hyperlipidemia. Patient states that she woke up feeling short of breath, she took her BiPAP off and continue to stay in bed for a period of time, shortly thereafter she states she developed a chest pain, on the left side of her chest and underneath her left breast. For this reason she came to the hospital for further evaluation. Her EKG on presentation here showed a normal sinus rhythm with no acute changes. Chest x-ray did not reveal any acute pulmonary process. Venous duplex study of the lower extremity negative for DVT, ultrasound of the groin was also performed which was negative for pseudoaneurysm. Blood pressure 108/60 with a heart rate in the 80s, 98% on room air. White blood cell count on admission 15, 9.8 this morning, hemoglobin 11.8, platelet count 173. D-dimer 0.63. Sodium 141, potassium 4.2, BUN 23, creatinine 0.9. AST 72 on admission, ALT 146, this morning 40 and 116. Troponins 1.4, 1.0, 0.78. Patient was initiated on IV antibiotics as well as steroids on arrival here. She was also given a nebulizer treatment. According to the patient, she states that her breathing is back to her normal, she denies any further chest discomfort. Patient did undergo a nuclear stress test in July of this year which was negative for any reversible ischemia. Past Medical History Past Medical History: Atrial Fibrillation, Atrial Flutter, COPD, CVA/TIA, Fibromyalgia, Hyperlipidemia, Sleep Apnea/CPAP/BIPAP Additional Past Medical History / Comment(s): ALEXANDER with CPap, occasionally burning bilateral quad muscles. History of Any Multi-Drug Resistant Organisms: None Reported Past Surgical History: Ablation, Back Surgery, Cardiac Ablation, Orthopedic Surgery Additional Past Surgical History / Comment(s): 10/01/17 Cryoablation, 07/29/17 cardiac ablation, R hand injury with surgery, L knee arthroscopy, multiple pain clinic procedures. 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 Pt has a nebulizer and Cpap machine. She is independent. Smoking Status: Current every day smoker Past Alcohol Use History: Rare Additional Past Alcohol Use History / Comment(s): Has been smoking 1/2 PPD on and off for 41 yrs. Only smokes 6 cigarettes a day currently Past Drug Use History: Marijuana, Opiates Additional Drug Use History / Comment(s): Uses Medical Marijuana ocassionally, current use of cbd oil for pain. Hx of past opiod abuse, has been off them X1 yr. - Past Family History Father Family Medical History: Cancer Additional Family Medical History / Comment(s): Father had mesothelioma, lung cancer. Mother Family Medical History: Myocardial Infarction ([place]) Additional Family Medical History / Comment(s): 2 stents in heart. Mother is 95 yrs old. Medications and Allergies Home Medications Medication Instructions Recorded Confirmed Type Albuterol Inhaler [Ventolin Hfa 2 puff INHALATION RT-Q6H PRN 10/08/16 10/04/17 History Inhaler] Albuterol Nebulized [Ventolin 2.5 mg INHALATION RT-Q4H PRN 10/08/16 10/04/17 History Nebulized] Tiotropium 18 Mcg/Puff [Spiriva] 1 puff INHALATION RT-DAILY 10/08/16 10/04/17 History Atorvastatin [Lipitor] 40 mg PO HS 02/04/17 10/04/17 History buPROPion HCL [Wellbutrin SR] 150 mg PO DAILY 02/19/17 10/04/17 History Apixaban [Eliquis] 5 mg PO BID #60 tab 05/04/17 10/04/17 Rx Metoprolol Tartrate [Lopressor] 25 mg PO BID 07/02/17 10/04/17 History Flecainide [Tambocor] 50 mg PO Q12HR 10/04/17 10/04/17 History Allergies Allergy/AdvReac Type Severity Reaction Status Date / Time Iodinated Contrast- Oral and Allergy Rash/Hives Verified 10/04/17 09:49 IV Dye [Iodinated Contrast Media - Oral and] sulfamethoxazole Allergy Itching Verified 10/04/17 09:49 [From Bactrim] trimethoprim [From Bactrim] Allergy Itching Verified 10/04/17 09:49 Physical Exam Vitals: Vital Signs Temp Pulse Pulse Resp BP BP Pulse Ox 10/05/17 08:00 70 16 103/67 100 10/05/17 04:00 96.9 F L 79 18 108/65 97 10/05/17 00:00 97.5 F L 79 18 98/52 98 10/04/17 21:11 80 10/04/17 20:51 80 10/04/17 19:57 97 F L 78 18 108/69 96 10/04/17 17:04 80 10/04/17 16:41 84 10/04/17 15:39 18 10/04/17 14:06 98.8 F 81 20 109/64 96 10/04/17 13:27 99 F 85 16 109/59 96 10/04/17 12:30 83 16 118/64 98 10/04/17 12:20 84 10/04/17 12:05 80 10/04/17 10:13 83 22 108/62 98 Intake and Output 10/04/17 10/05/17 10/05/17 22:59 06:59 14:59 Intake Total 370 10 Balance 370 10 Intake: IV 10 10 0.9 10 10 Oral 360 Other: Voiding Method Toilet Weight 89.3 kg PHYSICAL EXAMINATION: HEENT: Head is atraumatic, normocephalic. Pupils equal, round. Neck is supple. There is no elevated jugular venous pressure. HEART EXAMINATION: Heart S1, S2 normal. No murmur or gallop heard. CHEST EXAMINATION: Lungs reveal scattered wheezing throughout. ABDOMEN: Soft, nontender. Bowel sounds are heard. No organomegaly noted. EXTREMITIES: 2+ peripheral pulses with no evidence of peripheral edema and no calf tenderness noted. NEUROLOGIC patient is awake, alert and oriented -3. . Results 10/05/17 06:10 10/05/17 06:10 Cardiac Enzymes 10/04/17 10/04/17 10/04/17 Range/Units 10:39 10:39 16:16 AST 72 H (14-36) U/L CK-MB (CK-2) 0.9 0.7 (0.0-2.4) ng/mL Troponin I 1.420 H* 1.070 H* (0.000-0.034) ng/mL 10/04/17 10/05/17 Range/Units 22:33 06:10 AST 40 H (14-36) U/L CK-MB (CK-2) 0.7 (0.0-2.4) ng/mL Troponin I 0.788 H* (0.000-0.034) ng/mL Coagulation 10/04/17 Range/Units 10:39 PT 10.1 (9.0-12.0) sec APTT 24.5 (22.0-30.0) sec Lipids 10/05/17 Range/Units 06:10 Triglycerides 53 (<150) mg/dL Cholesterol 123 (<200) mg/dL HDL Cholesterol 58 (40-60) mg/dL CBC 10/04/17 10/05/17 Range/Units 10:39 06:10 WBC 15.0 H 9.8 (3.8-10.6) k/uL RBC 4.04 4.07 (3.80-5.40) m/uL Hgb 12.0 11.8 (11.4-16.0) gm/dL Hct 35.0 37.0 (34.0-46.0) % Plt Count 177 173 (150-450) k/uL Comprehensive Metabolic Panel 10/04/17 10/05/17 Range/Units 10:39 06:10 Sodium 139 141 (137-145) mmol/L Potassium 4.1 4.2 (3.5-5.1) mmol/L Chloride 104 102 (98-107) mmol/L Carbon Dioxide 27 24 (22-30) mmol/L BUN 27 H 23 H (7-17) mg/dL Creatinine 0.92 0.90 (0.52-1.04) mg/dL Glucose 102 H 155 H (74-99) mg/dL Calcium 9.1 9.5 (8.4-10.2) mg/dL AST 72 H 40 H (14-36) U/L ALT 146 H 116 H (9-52) U/L Alkaline Phosphatase 109 93 (38-126) U/L Total Protein 6.4 6.5 (6.3-8.2) g/dL Albumin 3.4 L 3.5 (3.5-5.0) g/dL Current Medications Generic Name Dose Route Start Last Admin Trade Name Freq PRN Reason Stop Dose Admin Acetaminophen 650 mg 10/04/17 15:43 Tylenol Tab PO Q6HR PRN Fever and/ or Pain Albuterol/Ipratropium 3 ml 10/04/17 16:00 10/05/17 09:00 Duoneb 0.5 Mg-3 Mg/3 Ml Soln INHALATION Not Given RT-QID ERIC Apixaban 5 mg 10/04/17 21:00 10/05/17 08:47 Eliquis PO 5 mg BID ERIC Administration Aspirin 325 mg 10/05/17 09:00 10/05/17 08:46 Aspirin PO 325 mg DAILY ERIC Administration Atorvastatin Calcium 40 mg 10/04/17 21:00 10/04/17 21:11 Lipitor PO 40 mg HS ERIC Administration Budesonide 1 mg 10/04/17 20:00 10/05/17 09:00 Pulmicort INHALATION Not Given RT-BID ERIC Bupropion HCl 150 mg 10/05/17 09:00 10/05/17 08:46 Wellbutrin Sr PO 150 mg DAILY ERIC Administration Ceftriaxone Sodium 1,000 mg 10/04/17 16:00 10/04/17 17:07 Rocephin IVP 1,000 mg Q24HR ERIC Administration Famotidine 20 mg 10/04/17 16:00 10/05/17 08:46 Pepcid PO 20 mg DAILY ERIC Administration Flecainide Acetate 50 mg 10/04/17 21:00 10/05/17 08:47 Tambocor PO 50 mg Q12HR ERIC Administration Insulin Aspart 0 unit 10/04/17 17:30 10/05/17 06:54 Novolog SQ 2 unit ACHS ERIC Administration Protocol Methylprednisolone Sodium Succinate 60 mg 10/04/17 18:00 10/05/17 06:53 Solu-Medrol IV 60 mg Q6HR ERIC Administration Metoprolol Tartrate 25 mg 10/04/17 21:00 10/05/17 08:46 Lopressor PO 25 mg BID ERIC Administration Morphine Sulfate 4 mg 10/04/17 13:27 Morphine Sulfate (Inj) IV Q5M PRN Chest Pain Morphine Sulfate 6 mg 10/04/17 15:48 Morphine Oral Cara 2mg/Ml PO Q6H PRN Pain Nicotine 1 patch 10/05/17 09:00 10/05/17 08:46 Habitrol 21mg/24hr Patch TRANSDERM 1 patch DAILY ERIC Administration Nitroglycerin 0.4 mg 10/04/17 13:27 Nitrostat SUBLINGUAL Q5M PRN Chest Pain Ondansetron HCl 4 mg 10/04/17 15:43 Zofran IVP Q6HR PRN Nausea And Vomiting Intake and Output 10/04/17 10/05/17 10/05/17 22:59 06:59 14:59 Intake Total 370 10 Balance 370 10 Intake: IV 10 10 0.9 10 10 Oral 360 Other: Voiding Method Toilet Weight 89.3 kg Patient Weight 10/06/17 06:59 Weight 89.3 kg 10/05/17 06:10 10/05/17 06:10 EKG Interpretations (text) EKG shows a normal sinus rhythm with no acute changes. Assessment and Plan Plan: Assessment and plan #1 chest pain, atypical in nature. EKG shows normal sinus rhythm with no acute changes. Troponins 1.4, 1.0, 0.78. #2 recent ablation, patient has history of both atrial flutter and atrial fibrillation. #3 COPD, with possible exacerbation #4 nicotine dependence # 5 sleep apnea #6 hyperlipidemia Plan We will obtain an echocardiogram with Doppler study. We will also discuss continue the aspirin, patient's abnormality and troponin likely secondary to recent ablation. Patient did have a stress test performed in July of this year, nuclear, negative for any reversible ischemia. Pending the results of the echo further recommendations will be made. DNP note has been reviewed, I agree with a documented findings and plan of care. Patient was seen and examined.
--- NOTE | 2017-10-05 10:23 | P.PN ---
Progress Note - Text This is an addendum to the dictated cardiology consultation. The patient presents with symptoms of dyspnea and chest discomfort. She recently underwent ablation for atrial fibrillation. She has a history of chronic obstructive lung disease and chronic tobacco use. She has underwent an MPI in July of this year that showed no evidence of stress-induced ischemia and her systolic function was normal. Her breathing is stable at this time and she has no symptoms of chest discomfort. She continues to be in sinus mechanism. She has no symptoms off significant peripheral edema, PND or orthopnea. Her physical examination shows sinus mechanism and she has scattered wheezes but no significant peripheral edema. Her EKG shows no acute changes. Patient presents with atypical chest discomfort, the troponin elevation is related to her recent intervention. Her worsening dyspnea is most likely related to exacerbation of COPD. From the cardiac standpoint I will continue on the present regimen except stop the aspirin. We will obtain an echocardiogram to rule out any change in her systolic function. Thank you for this consult we will follow with you.
[2017-10-05 11:55] LABS: Glucose,Whole Blood 128 mg/dL (75-99)
[2017-10-05] MEDS: cefTRIAXone IN SWFI 1,000 MG/10 ML SYRINGE IVP SCH (12:05)
[2017-10-05] MEDS ORDERED: MORPHINE ORAL SOLN 10 MG/5 ML CUP PO PRN (13:40)
--- NOTE | 2017-10-05 14:10 | P.CNPUL ---
History of Present Illness Consult date: 10/05/17 Reason for consult: dyspnea, cough, COPD Chief complaint: Shortness of breath History of present illness: Consult dated 10/05/2017 This is a 61-year-old female who was admitted through the emergency department with complaints of shortness of breath. She also has chest pain. The patient had bilateral lower extremity numbness and tingling as well. She does have a significant heart history including atrial fibrillation and flutter. 3 days ago she had a cardiac ablation. Her symptoms started the night prior to admission. No nausea vomiting. The patient did not have any cough or phlegm production. Some wheezing. His certainly some shortness of breath as well. She does apparently have a history of COPD. She was told this many years back. She currently does not see a lung doctor. He was he is on a Ventolin inhaler as well as Spiriva. Still smokes cigarettes. Medical history includes atrial fibrillation/flutter COPD CVA fibromyalgia hyperlipidemia sleep apnea syndrome and recent ablation. She's also had back surgery and a number of orthopedic procedures. Review of Systems A 12 point review of system is positive for shortness of breath as well as a number of other complaints as mentioned in the history. Currently feeling relatively well. Her breathing is fine. Denies any significant shortness of breath at this time. Not coughing wheezing or producing any phlegm. Past Medical History Past Medical History: Atrial Fibrillation, Atrial Flutter, COPD, CVA/TIA, Fibromyalgia, Hyperlipidemia, Sleep Apnea/CPAP/BIPAP Additional Past Medical History / Comment(s): ALEXANDER with CPap, occasionally burning bilateral quad muscles. History of Any Multi-Drug Resistant Organisms: None Reported Past Surgical History: Ablation, Back Surgery, Cardiac Ablation, Orthopedic Surgery Additional Past Surgical History / Comment(s): 10/01/17 Cryoablation, 07/29/17 cardiac ablation, R hand injury with surgery, L knee arthroscopy, multiple pain clinic procedures. 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 Pt has a nebulizer and Cpap machine. She is independent. Smoking Status: Current every day smoker Past Alcohol Use History: Rare Additional Past Alcohol Use History / Comment(s): Has been smoking 1/2 PPD on and off for 41 yrs. Only smokes 6 cigarettes a day currently Past Drug Use History: Marijuana, Opiates Additional Drug Use History / Comment(s): Uses Medical Marijuana ocassionally, current use of cbd oil for pain. Hx of past opiod abuse, has been off them X1 yr. - Past Family History Father Family Medical History: Cancer Additional Family Medical History / Comment(s): Father had mesothelioma, lung cancer. Mother Family Medical History: Myocardial Infarction (MA) Additional Family Medical History / Comment(s): 2 stents in heart. Mother is 95 yrs old. Medications and Allergies Home Medications Medication Instructions Recorded Confirmed Type Albuterol Inhaler [Ventolin Hfa 2 puff INHALATION RT-Q6H PRN 10/08/16 10/04/17 History Inhaler] Albuterol Nebulized [Ventolin 2.5 mg INHALATION RT-Q4H PRN 10/08/16 10/04/17 History Nebulized] Tiotropium 18 Mcg/Puff [Spiriva] 1 puff INHALATION RT-DAILY 10/08/16 10/04/17 History Atorvastatin [Lipitor] 40 mg PO HS 02/04/17 10/04/17 History buPROPion HCL [Wellbutrin SR] 150 mg PO DAILY 02/19/17 10/04/17 History Apixaban [Eliquis] 5 mg PO BID #60 tab 05/04/17 10/04/17 Rx Metoprolol Tartrate [Lopressor] 25 mg PO BID 07/02/17 10/04/17 History Flecainide [Tambocor] 50 mg PO Q12HR 10/04/17 10/04/17 History Allergies Allergy/AdvReac Type Severity Reaction Status Date / Time Iodinated Contrast- Oral and Allergy Rash/Hives Verified 10/04/17 09:49 IV Dye [Iodinated Contrast Media - Oral and] sulfamethoxazole Allergy Itching Verified 10/04/17 09:49 [From Bactrim] trimethoprim [From Bactrim] Allergy Itching Verified 10/04/17 09:49 Physical Exam Osteopathic Statement: *. No significant issues noted on an osteopathic structural exam other than those noted in the History and Physical/Consult. Vitals: Vital Signs Temp Pulse Pulse Resp BP BP Pulse Ox 10/05/17 12:00 73 16 117/71 96 10/05/17 11:14 16 10/05/17 08:00 70 16 103/67 100 10/05/17 04:00 96.9 F L 79 18 108/65 97 10/05/17 00:00 97.5 F L 79 18 98/52 98 10/04/17 21:11 80 10/04/17 20:51 80 10/04/17 19:57 97 F L 78 18 108/69 96 10/04/17 17:04 80 10/04/17 16:41 84 10/04/17 15:39 18 10/04/17 14:06 98.8 F 81 20 109/64 96 Intake and Output 10/04/17 10/05/17 10/05/17 22:59 06:59 14:59 Intake Total 370 10 Balance 370 10 Intake: IV 10 10 0.9 10 10 Oral 360 Other: Voiding Method Toilet Toilet Weight 89.3 kg No acute distress, oriented 3. HEENT examination is grossly unremarkable. Mucous membranes are moist. No oral lesions. Neck supple. Full range of motion. No adenopathy thyromegaly or neck vein distention. Cardiovascular examination reveals regular rhythm rate. S1-S2 normal. No S3 or S4. No discernible murmur noted. Lungs reveal mostly clear breath sounds. A few scattered rhonchi. No wheezes or crackles. Breath sounds are equal bilaterally. Abdomen soft bowel sounds are heard. No masses or tenderness. Extremities are intact. No cyanosis clubbing or edema. Skin is without rash or lesion. Neurologic examination is brief but nonfocal. Results - Laboratory Findings CBC and BMP: 10/05/17 06:10 10/05/17 06:10 PT/INR, D-dimer PT 10.1 sec (9.0-12.0) 10/04/17 10:39 INR 1.0 (<1.2) 10/04/17 10:39 D-Dimer 0.63 mg/L FEU (<0.60) H 10/04/17 10:39 Abnormal lab findings: Abnormal Labs 10/04/17 10/04/17 10/04/17 10:39 10:39 10:39 WBC 15.0 H Neutrophils # 12.4 H Lymphocytes # D-Dimer BUN 27 H Glucose 102 H POC Glucose (mg/dL) AST 72 H ALT 146 H Troponin I 1.420 H* Albumin 3.4 L 10/04/17 10/04/17 10/04/17 10:39 16:16 16:28 WBC Neutrophils # Lymphocytes # D-Dimer 0.63 H BUN Glucose POC Glucose (mg/dL) 168 H AST ALT Troponin I 1.070 H* Albumin 10/04/17 10/04/17 10/05/17 20:43 22:33 06:10 WBC Neutrophils # Lymphocytes # D-Dimer BUN 23 H Glucose 155 H POC Glucose (mg/dL) 193 H AST 40 H ALT 116 H Troponin I 0.788 H* Albumin 10/05/17 10/05/17 10/05/17 06:10 06:32 11:53 WBC Neutrophils # 8.8 H Lymphocytes # 0.6 L D-Dimer BUN Glucose POC Glucose (mg/dL) 159 H 128 H AST ALT Troponin I Albumin - Diagnostic Findings Chest x-ray: image reviewed (Labs x-rays medications are all reviewed.) Assessment and Plan Assessment: Assessment Shortness of breath, likely secondary to COPD exacerbation, much improved today. Recent ablation for atrial fibrillation/flutter History of ongoing tobacco use with nicotine addiction History of CVA History of fibromyalgia History of hyperlipidemia Sleep apnea syndrome, currently on CPAP History of neuropathy. Previous history of cardiac ablation on 07/29/2017 Plan: Plan dated 10/05/2017 The patient seemed be doing relatively well. Labs x-rays a medications are reviewed. Chest x-ray shows no acute infiltrates. From the pulmonary standpoint she can likely be discharged hopefully the near future. Maybe the next day or so. No additional recommendations are made. Time with Patient: Greater than 30
--- NOTE | 2017-10-05 14:26 | ECHOF ---
Referral Reason:[facility] MEASUREMENTS -------- HEIGHT: 160.0 cm WEIGHT: 87.5 kg BP: 109/64 IVSd: 1.2 cm (0.6 - 1.1) LVIDd: 4.4 cm (3.9 - 5.3) LVPWd: 1.1 cm (0.6 - 1.1) IVSs: 1.3 cm LVIDs: 3.1 cm LVPWs: 1.5 cm LAESV Index (A-L): 16.49 ml/m Ao Diam: 2.3 cm (2.0 - 3.7) AV Cusp: 1.6 cm (1.5 - 2.6) LA Diam: 4.1 cm (2.7 - 3.8) MV E Yaniv: 0.99 m/s MV DecT: 175 ms MV A Yaniv: 0.27 m/s MV E/A Ratio: 3.68 RAP: 15.00 mmHg RVSP: 49.58 mmHg FINDINGS -------- Sinus rhythm. This was a technically difficult study with suboptimal views. The left ventricular size is normal. There is mild concentric left ventricular hypertrophy. Overa ll left ventricular systolic function is normal with, an EF between 55 - 60 %. The right ventricle is normal in size and function. Normal LA size by volume 22+/-6 ml/m2. RA appears enlarged. 3 ml of Lumason was utilized for enhancement of images Possible PFO The aortic valve is trileaflet, and appears structurally normal. No aortic stenosis or regurgitation. The mitral valve is normal. Mild mitral regurgitation is present. Mild tricuspid regurgitation present. There is mild to moderate pulmonary hypertension. The right ventricular systolic pressure, as measured by Doppler, is 49.58mmHg. The pulmonic valve was not well visualized. There is no pulmonic regurgitation present. The aortic root size is normal. The inferior vena cava is dilated with poor inspiratory collapse which is consistent with estimated r ight atrial pressure of 20 mmHg. There is no pericardial effusion. CONCLUSIONS -------- 1. Sinus rhythm. 2. This was a technically difficult study with suboptimal views. 3. The left ventricular size is normal. 4. There is mild concentric left ventricular hypertrophy. 5. Overall left ventricular systolic function is normal with, an EF between 55 - 60 %. 6. Normal LA size by volume 22+/-6 ml/m2. 7. RA appears enlarged. 8. 3 ml of Lumason was utilized for enhancement of images 9. Possible PFO 10. The aortic valve is trileaflet, and appears structurally normal. No aortic stenosis or regurgitat ion. 11. Mild mitral regurgitation is present. 12. Mild tricuspid regurgitation present. 13. There is mild to moderate pulmonary hypertension. 14. The pulmonic valve was not well visualized. 15. There is no pulmonic regurgitation present. 16. The aortic root size is normal. 17. The inferior vena cava is dilated with poor inspiratory collapse which is consistent with estimat ed right atrial pressure of 20 mmHg. 18. There is no pericardial effusion. NECK BAND SETTER: Dillon Santiago RDCS
[2017-10-05] MEDS: methylPREDNISolone SOD SUCCI 40 MG/ML 1 ML VIAL IV SCH ×2 (16:25→23:01)
[2017-10-05 16:54] LABS: Glucose,Whole Blood 161 mg/dL (75-99)
--- NOTE | 2017-10-05 17:49 | P.PN ---
Subjective Progress Note Date: 10/05/17 61 years old female with past medical history of atrial fibrillation, atrial flutter last cardioversion done on 10/02 patient currently in sinus rhythm , history of COPD, sleep apnea on CPAP, history of stroke, hyperlipidemia presents in with acute onset of shortness of breath that started yesterday night before patient went to sleep. Patient woke up this morning with increased shortness of breath, shallow breathing, chest pain the last a few seconds. Chest pain was in the left side of the chest nonradiating pressure- like heaviness, not associated with sweating resolved by itself. Patient denies any cough or sputum production. She denies any fever or chills. Vitals are stable afebrile, respiratory rate 16, blood pressure 118/64. Patient is admitted for acute bronchitis. Labs evaluated suggested of increased LFTs 72 AST troponin 1.42 which could be secondary to recent intervention. EKG was done that suggested normal sinus rhythm with some Q waves noted in the 3. Troponin every 6 ordered. Repeat EKG tomorrow morning. Cardiology consult placed. Pulmonary consult placed 10/05: Patient is doing better, improving shortness of breath, still on Solu Medrol 60 mg every 6 hours, echocardiogram has been performed, and is pending, busher helper awaiting final reports from echocardiogram, otherwise patient is less symptomatic Solu-Medrol 60 mg every 6 hours currently and will be decreased to 40 mg every 8 hours, anticipate discharge in the morning troponin is decreasing in intensity, most likely related to recent ablation, telemetry monitoring shows sinus rhythm without any ectopy Objective - Vital Signs Vital signs: Vital Signs Temp 97.2 F L 10/05/17 16:00 Pulse 86 10/05/17 16:19 Resp 14 10/05/17 16:00 BP 101/68 10/05/17 16:00 Pulse Ox 97 10/05/17 16:00 Intake & Output 10/04/17 10/05/17 10/05/17 18:59 06:59 18:59 Intake Total 360 20 240 Balance 360 20 240 Weight 87.543 kg 89.3 kg Intake: IV 20 0.9 20 Oral 360 240 Other: Voiding Method Toilet Toilet # Voids 1 - Labs CBC & Chem 7: 10/05/17 06:10 10/05/17 06:10 Labs: Abnormal Lab Results - Last 24 Hours (Table) 10/04/17 10/04/17 10/05/17 Range/Units 20:43 22:33 06:10 Neutrophils # (1.3-7.7) k/uL Lymphocytes # (1.0-4.8) k/uL BUN 23 H (7-17) mg/dL Glucose 155 H (74-99) mg/dL POC Glucose (mg/dL) 193 H (75-99) mg/dL AST 40 H (14-36) U/L ALT 116 H (9-52) U/L Troponin I 0.788 H* (0.000-0.034) ng/mL 10/05/17 10/05/17 10/05/17 Range/Units 06:10 06:32 11:53 Neutrophils # 8.8 H (1.3-7.7) k/uL Lymphocytes # 0.6 L (1.0-4.8) k/uL BUN (7-17) mg/dL Glucose (74-99) mg/dL POC Glucose (mg/dL) 159 H 128 H (75-99) mg/dL AST (14-36) U/L ALT (9-52) U/L Troponin I (0.000-0.034) ng/mL 10/05/17 Range/Units 16:42 Neutrophils # (1.3-7.7) k/uL Lymphocytes # (1.0-4.8) k/uL BUN (7-17) mg/dL Glucose (74-99) mg/dL POC Glucose (mg/dL) 161 H (75-99) mg/dL AST (14-36) U/L ALT (9-52) U/L Troponin I (0.000-0.034) ng/mL Assessment and Plan Plan: #1 atrial flutter/atrial fibrillation. Underwent cardiac ablation on 10/02. [facility] Troponin increased likely secondary to recent intervention levels are currently tapering down. The patient is also endorsing chest pain that resolved by itself. Continue flecainide and metoprolol 20Tropon milligrams twice a day in trend every 6. Cardiology consulted. Continue eliquis #2 shortness of breath likely secondary to COPD exacerbation/acute bronchitis. Continue Solu-Medrol IV 60 every 6 hours decreased to 40 mg every 8 hours. Encourage incentive spirometry. Sputum culture. DuoNeb as needed for shortness of breath. Ceftriaxone for acute bronchitis. Pulmicort twice a day. Pulmonary consulted. Rocephin discontinued 10/05, and started cephalexin oral #3 hyperlipidemia continue atorvastatin 40 mg #4Anxiety continue Wellbutrin 150 mg daily #5 GI prophylaxis with Pepcid DVT prophylaxis with eliquis Disposition home discharge 24 hours should cardiac rate stabilized with nebulizer treatments CODE STATUS full code
[2017-10-05] MEDS: ATORVASTATIN 40 MG TAB PO SCH (20:02)
[2017-10-05] MEDS: CEPHALEXIN 500 MG CAP PO SCH ×2 (20:12→20:14)
[2017-10-05 20:58] LABS: Glucose,Whole Blood 194 mg/dL (75-99)
[2017-10-06] MEDS: INSULIN ASPART 100 UNIT/ML 1 ML 10 ML VIAL SQ SCH ×3 (06:36→17:19)
[2017-10-06 06:42] LABS: Glucose,Whole Blood 136 mg/dL (75-99)
[2017-10-06 06:48] LABS: Albumin 3.5 g/dL (3.5-5.0); Calcium 9.3 mg/dL (8.4-10.2); Potassium 4.4 mmol/L (3.5-5.1); Total Bilirubin 0.5 mg/dL (0.2-1.3); Total Protein 6.5 g/dL (6.3-8.2)
[2017-10-06 06:51] LABS: Basophils % (A) 0 %; Eosinophils % (A) 0 %; HCT 36.4 % (34.0-46.0); Lymphocytes # (A) 0.7 k/uL (1.0-4.8); Lymphocytes % (A) 4 %; MCH 29.2 pg (25.0-35.0); MCHC 32.9 g/dL (31.0-37.0); MCV 88.7 fL (80.0-100.0); Mean Platelet Volume 7.5; Monocytes # (A) 0.5 k/uL (0-1.0); Monocytes % (A) 3 %; Neutrophils # (A) 14.9 k/uL (1.3-7.7); Neutrophils % (A) 92 %; Platelet Count 211 k/uL (150-450); RDW 13.9 % (11.5-15.5); WBC 16.2 k/uL (3.8-10.6)
[2017-10-06] MEDS: BUDESONIDE 1 MG/2 ML NEBU INHALATION SCH (08:24)
[2017-10-06] MEDS: IPRATROPIUM-ALBUTEROL 3 ML NEB INHALATION SCH ×3 (09:00→16:16)
[2017-10-06] MEDS: buPROPion SR 150 MG TABLET.ER PO SCH (09:10)
[2017-10-06] MEDS: APIXABAN 5 MG TAB PO SCH (09:10)
[2017-10-06] MEDS: FAMOTIDINE 20 MG TAB PO SCH (09:10)
[2017-10-06] MEDS: NICOTINE 21MG/24HR PATCH TRANSDERM SCH (09:10)
[2017-10-06] MEDS: CEPHALEXIN 500 MG CAP PO SCH ×2 (09:10→17:19)
[2017-10-06] MEDS: METOPROLOL TARTRATE 25 MG TAB PO SCH (09:10)
[2017-10-06] MEDS: FLECAINIDE 50 MG TAB PO SCH (09:10)
[2017-10-06] MEDS: methylPREDNISolone SOD SUCCI 40 MG/ML 1 ML VIAL IV SCH (09:11)
--- NOTE | 2017-10-06 11:03 | PN ---
PROGRESS NOTE DATE OF SERVICE: 10/06/2017. HISTORY: Ms. Grullon is a 61-year-old female who recently underwent ablation for atrial fibrillation, who presented again to the hospital with symptoms of dyspnea. She is feeling better today. She still has some cough. She has no dizziness or palpitations. She underwent an echocardiogram yesterday revealed preserved ventricular size systolic function. She continues to be on Eliquis 5 mg twice a day, Lipitor 40 mg daily, flecainide 50 mg twice a day, metoprolol tartrate 25 mg twice a day. PHYSICAL EXAMINATION: Blood pressure 110/60 with a heart rate in the 70s. LUNGS: With scattered wheezes bilaterally. HEART: Regular rate and rhythm. S1, S2. No S3. No rub. ABDOMEN: Soft, nontender. EXTREMITIES: No edema. LAB DATA: BUN and creatinine 34 and 0.94, potassium 4.4, hemoglobin of 12. IMPRESSION: 1. Symptoms of progressive dyspnea with exacerbation of chronic obstructive pulmonary disease. 2. Status post atrial fibrillation ablation, remains in sinus mechanism. 3. History of hypertension. 4. History of chronic tobacco use. RECOMMENDATIONS: From the cardiac standpoint, she is stable on her present medical regimen. She will follow as an outpatient with Dr. Stevens as well as Dr. Rascon. I have discussed with her the importance of smoking cessation. MMODL / IJN: [id number] /
[2017-10-06 11:49] LABS: Glucose,Whole Blood 134 mg/dL (75-99)
--- NOTE | 2017-10-06 13:04 | P.PN ---
Subjective Progress Note Date: 10/06/17 Principal diagnosis: Shortness of breath Progress note dated 10/06/2017 This is a 61-year-old female with a history of shortness of breath, secondary to COPD exacerbation. She also has a history of a recent ablation for atrial fibrillation/flutter history of ongoing tobacco use with nicotine addiction previous CVA fibromyalgia hyperlipidemia sleep apnea syndrome, currently on CPAP and history of neuropathy. The patient is feeling much improved and in fact yesterday was much better. Still but short of breath particularly when she exerts herself. The patient was counseled about the importance of smoking cessation. Objective - Vital Signs Vital signs: Vital Signs Temp 97 F L 10/06/17 04:00 Pulse 84 10/06/17 12:28 Resp 18 10/06/17 04:00 BP 110/68 10/06/17 04:00 Pulse Ox 97 10/06/17 04:00 Intake & Output 10/05/17 10/06/17 10/06/17 18:59 06:59 18:59 Intake Total 240 20 240 Balance 240 20 240 Weight 89.3 kg Intake: IV 20 0.9 20 Oral 240 240 Other: Voiding Method Toilet Toilet # Voids 1 - Exam No acute distress, oriented 3. HEENT examination is grossly unremarkable. Mucous membranes are moist. No oral lesions. Neck supple. Full range of motion. No adenopathy thyromegaly or neck vein distention. Cardiovascular examination reveals regular rhythm rate. S1-S2 normal. No S3 or S4. No discernible murmur noted. Lungs reveal mostly clear breath sounds. A few scattered rhonchi and wheezes are noted. Breath sounds are definitely diminished throughout. Breath sounds are equal bilaterally. Abdomen soft bowel sounds are heard. No masses or tenderness. Extremities are intact. No cyanosis clubbing or edema. Skin is without rash or lesion. Neurologic examination is brief but nonfocal. - Labs CBC & Chem 7: 10/06/17 05:20 10/06/17 05:20 Labs: Abnormal Lab Results - Last 24 Hours (Table) 10/05/17 10/05/17 10/06/17 Range/Units 16:42 20:46 05:20 WBC 16.2 H (3.8-10.6) k/uL Neutrophils # 14.9 H (1.3-7.7) k/uL Lymphocytes # 0.7 L (1.0-4.8) k/uL BUN (7-17) mg/dL Glucose (74-99) mg/dL POC Glucose (mg/dL) 161 H 194 H (75-99) mg/dL ALT (9-52) U/L 10/06/17 10/06/17 10/06/17 Range/Units 05:20 06:30 11:45 WBC (3.8-10.6) k/uL Neutrophils # (1.3-7.7) k/uL Lymphocytes # (1.0-4.8) k/uL BUN 34 H (7-17) mg/dL Glucose 132 H (74-99) mg/dL POC Glucose (mg/dL) 136 H 134 H (75-99) mg/dL ALT 93 H (9-52) U/L Microbiology - Last 24 Hours (Table) 10/05/17 16:10 Gram Stain - Preliminary Sputum Sputum Culture - Preliminary Assessment and Plan Assessment: Assessment Shortness of breath, likely secondary to COPD exacerbation, much improved today. Recent ablation for atrial fibrillation/flutter History of ongoing tobacco use with nicotine addiction History of CVA History of fibromyalgia History of hyperlipidemia Sleep apnea syndrome, currently on CPAP History of neuropathy. Previous history of cardiac ablation on 07/29/2017 Plan: Plan dated 10/05/2017 The patient seemed be doing relatively well. Labs x-rays a medications are reviewed. Chest x-ray shows no acute infiltrates. From the pulmonary standpoint she can likely be discharged hopefully the near future. Maybe the next day or so. No additional recommendations are made. Plan dated 10/06/2017 The patient is doing much better. The patient could be discharged home in the next 24-48 hours. The patient's breathing is much improved. Much less shortness of breath. Still short of breath on exertion. She will need outpatient evaluation including a 6 minute walk distance and PFTs. Additional recommendations and suggestions are forthcoming. Medications were adjusted yesterday. Time with Patient: Less than 30
[2017-10-06 15:07] VITALS: BP 105/67; RESP 16; TEMP 96.6
[2017-10-06 16:28] VITALS: PULSE 78
[2017-10-06 16:40] LABS: Glucose,Whole Blood 153 mg/dL (75-99)
--- NOTE | 2017-10-06 17:25 | P.DS ---
Providers Date of admission: 10/04/17 13:27 Attending physician: Brooke Aviles MD Consults: 10/04/17 15:41 Consult Physician Routine Consulting Provider: Stephane Rascon Consult Reason/Comments: chest pain with increased trop Do you want consulting provider notified?: Yes Primary care physician: [facility] Course: 61 years old female with past medical history of atrial fibrillation, atrial flutter last cardioversion done on 10/02 patient currently in sinus rhythm , history of COPD, sleep apnea on CPAP, history of stroke, hyperlipidemia presents in with acute onset of shortness of breath that started yesterday night before patient went to sleep. Patient woke up this morning with increased shortness of breath, shallow breathing, chest pain the last a few seconds. Chest pain was in the left side of the chest nonradiating pressure- like heaviness, not associated with sweating resolved by itself. Patient denies any cough or sputum production. She denies any fever or chills. Vitals are stable afebrile, respiratory rate 16, blood pressure 118/64. Patient is admitted for acute bronchitis. Labs evaluated suggested of increased LFTs 72 AST troponin 1.42 which could be secondary to recent intervention. EKG was done that suggested normal sinus rhythm with some Q waves noted in the 3. Troponin every 6 ordered. Repeat EKG tomorrow morning. Cardiology consult placed. Pulmonary consult placed 10/05: Patient is doing better, improving shortness of breath, still on Solu Medrol 60 mg every 6 hours, echocardiogram has been performed, and is pending, medical coder awaiting final reports from echocardiogram, otherwise patient is less symptomatic Solu-Medrol 60 mg every 6 hours currently and will be decreased to 40 mg every 8 hours, anticipate discharge in the morning troponin is decreasing in intensity, most likely related to recent ablation, telemetry monitoring shows sinus rhythm without any ectopy 10/06: Patient continues to be better, she has productive likely yellow sputum today, however she has no fevers, expecting her discharge to home today, with oral antibiotic,, sputum cultures are currently pending patient is committed to quitting smoking permanently, outpatient follow-up with pulmonary and cardiology Final Diagnoses #1 atrial flutter/atrial fibrillation. Underwent cardiac ablation on 10/02/17. Troponin increased likely secondary to recent intervention levels are currently tapering down. Continue flecainide and metoprolol 20Tropon milligrams twice a day in trend every 6. Cardiology consulted. Continue eliquis #2 shortness of breath likely secondary to COPD exacerbation/acute bronchitis. We did Solu-Medrol IV 60 every 6 hours decreased to 40 mg every 8 hours. Patient to oral prednisone Encourage incentive spirometry. Sputum culture pending on discharge. DuoNeb as needed for shortness of breath. Pulmicort twice a day. Pulmonary consulted. Rocephin discontinued 10/05, and started cephalexin oral #3 hyperlipidemia continue atorvastatin 40 mg #4Anxiety continue Wellbutrin 150 mg daily #5 GI prophylaxis with Pepcid #6, chronic tobacco dependency, patient is on nicotine patches, patient is going to do her best with permanent smoking cessation program DVT prophylaxis with eliquis Disposition home discharge 24 hours should cardiac rate stabilized with nebulizer treatments CODE STATUS full code Discharge Medication List Albuterol Inhaler [Ventolin Hfa Inhaler] 2 puff INHALATION RT-Q6H PRN 10/08/16 [ History] Albuterol Nebulized [Ventolin Nebulized] 2.5 mg INHALATION RT-Q4H PRN 10/08/16 [ History] Tiotropium 18 Mcg/Puff [Spiriva] 1 puff INHALATION RT-DAILY 10/08/16 [History] Atorvastatin [Lipitor] 40 mg PO HS 02/04/17 [History] buPROPion HCL [Wellbutrin SR] 150 mg PO DAILY 02/19/17 [History] Apixaban [Eliquis] 5 mg PO BID #60 tab 05/04/17 [Rx] Metoprolol Tartrate [Lopressor] 25 mg PO BID 07/02/17 [History] Flecainide [Tambocor] 50 mg PO Q12HR 10/04/17 [History] Budesonide-Formot 160-4.5 Mcg [Symbicort 160-4.5 Mcg Inhaler] 2 puff INHALATION BID #1 inhaler 10/06/17 [Rx] Cephalexin [Keflex] 500 mg PO TID #20 cap 10/06/17 [Rx] Famotidine [Pepcid] 20 mg PO DAILY #30 tab 10/06/17 [Rx] Nicotine 21Mg/24Hr Patch [Habitrol] 1 patch TRANSDERM DAILY patch 10/06/17 [Rx] predniSONE 50 mg PO DAILY #20 tab 10/06/17 [Rx] Patient Condition at Discharge: Fair Plan - Discharge Summary Discharge Rx Participant: No New Discharge Prescriptions: New Budesonide-Formot 160-4.5 Mcg [Symbicort 160-4.5 Mcg Inhaler] 2 puff INHALATION BID #1 inhaler Cephalexin [Keflex] 500 mg PO TID #20 cap Famotidine [Pepcid] 20 mg PO DAILY #30 tab Nicotine 21Mg/24Hr Patch [Habitrol] 1 patch TRANSDERM DAILY patch predniSONE 50 mg PO DAILY #20 tab No Action Tiotropium 18 Mcg/Puff [Spiriva] 1 puff INHALATION RT-DAILY Albuterol Nebulized [Ventolin Nebulized] 2.5 mg INHALATION RT-Q4H PRN PRN Reason: Shortness Of Breath Albuterol Inhaler [Ventolin Hfa Inhaler] 2 puff INHALATION RT-Q6H PRN PRN Reason: Shortness Of Breath Atorvastatin [Lipitor] 40 mg PO HS buPROPion HCL [Wellbutrin SR] 150 mg PO DAILY Apixaban [Eliquis] 5 mg PO BID #60 tab Metoprolol Tartrate [Lopressor] 25 mg PO BID Flecainide [Tambocor] 50 mg PO Q12HR Discharge Medication List Albuterol Inhaler [Ventolin Hfa Inhaler] 2 puff INHALATION RT-Q6H PRN 10/08/16 [ History] Albuterol Nebulized [Ventolin Nebulized] 2.5 mg INHALATION RT-Q4H PRN 10/08/16 [ History] Tiotropium 18 Mcg/Puff [Spiriva] 1 puff INHALATION RT-DAILY 10/08/16 [History] Atorvastatin [Lipitor] 40 mg PO HS 02/04/17 [History] buPROPion HCL [Wellbutrin SR] 150 mg PO DAILY 02/19/17 [History] Apixaban [Eliquis] 5 mg PO BID #60 tab 05/04/17 [Rx] Metoprolol Tartrate [Lopressor] 25 mg PO BID 07/02/17 [History] Flecainide [Tambocor] 50 mg PO Q12HR 10/04/17 [History] Budesonide-Formot 160-4.5 Mcg [Symbicort 160-4.5 Mcg Inhaler] 2 puff INHALATION BID #1 inhaler 04/15/18 [Rx] Cephalexin [Keflex] 500 mg PO TID #20 cap 10/06/17 [Rx] Famotidine [Pepcid] 20 mg PO DAILY #30 tab 10/06/17 [Rx] Nicotine 21Mg/24Hr Patch [Habitrol] 1 patch TRANSDERM DAILY patch 10/06/17 [Rx] predniSONE 50 mg PO DAILY #20 tab 10/06/17 [Rx] Follow up Appointment(s)/Referral(s): Stephane Rascon MD [STAFF PHYSICIAN] - 2 Weeks Ronnie Dickson DO [Doctor of Osteopathic Medicine] - 1 Week Dameon Cortez MD [Primary Care Provider] - 1-2 days Dawson Stevens MD [STAFF PHYSICIAN] - 1 Week Patient Instructions/Handouts: COPD (Chronic Obstructive Pulmonary Disease) (DC ), How Your Lungs Work (DC), Pulmonary Rehabilitation (DC) Activity/Diet/Wound Care/Special Instructions: will need pulmonary workup pft and ambulartory test 6 min test, cardiac op rehabilitation therapies Discharge Disposition: HOME SELF-CARE
== END 2017-10-06 19:11 | disposition home or self-care (01) ==
LOC: EC 09:23 → 6SEL 13:27
PROVIDERS: ADMIT Internal Medicine; ATTEND Internal Medicine
DX: I48.91 Unspecified atrial fibrillation (principal); I48.92 Unspecified atrial flutter; R77.8 Other specified abnormalities of plasma proteins; R06.02 Shortness of breath; J44.1 Chronic obstructive pulmonary disease with (acute) exacerbation; J20.9 Acute bronchitis, unspecified; J44.0 Chronic obstructive pulmonary disease with (acute) lower respiratory infection; E78.5 Hyperlipidemia, unspecified; F41.9 Anxiety disorder, unspecified; G47.33 Obstructive sleep apnea (adult) (pediatric); F32.9 Major depressive disorder, single episode, unspecified; G62.9 Polyneuropathy, unspecified; M79.7 Fibromyalgia; I10 Essential (primary) hypertension; Z99.89 Dependence on other enabling machines and devices; F17.210 Nicotine dependence, cigarettes, uncomplicated; Z86.73 Personal history of transient ischemic attack (TIA), and cerebral infarction without residual deficits; Z79.01 Long term (current) use of anticoagulants; Z79.899 Other long term (current) drug therapy; Z80.1 Family history of malignant neoplasm of trachea, bronchus and lung; Z82.49 Family history of ischemic heart disease and other diseases of the circulatory system; Z91.041 Radiographic dye allergy status; Z88.2 Allergy status to sulfonamides; Z91.048 Other nonmedicinal substance allergy status; E66.9 Obesity, unspecified; Z68.34 Body mass index [BMI] 34.0-34.9, adult
CPT/HCPCS: 96376 ×3; 96374; 96375; 93005 ×2; 99291; 36415; 94640 ×6; 94760; 85379; 80061; 80053 ×3; 82550; 82553; 83690; 83735; 84484; 85025 ×3; 85610; 85730; 87070; 87205; 83036; 71046 ×2; 93975; 93926 ×2; G0378 ×3; C8929; S4990 ×2; J2920 ×2; J2930 ×2; S0106 ×2; J0696 ×2; Q9950; 93306

== ENCOUNTER 2017-10-22 10:55 | Day surgery (SDC) | payer MEDICARE, OTHER ==
[2017-10-16 15:18] VITALS: BMI 34.2
[2017-10-22 11:37] VITALS: TEMP 97.6
[2017-10-22] MEDS ORDERED: SODIUM CHLORIDE 0.9% 500 ML IV ONE (11:51)
[2017-10-22] MEDS ORDERED: PROPOFOL 10 MG/ML 20 ML VIAL IV ONE (12:30)
[2017-10-22] MEDS ORDERED: ePHEDrine SULFATE/0.9% NACL/PF 50 MG/5 ML SYRINGE IV ONE (12:30)
[2017-10-22] MEDS ORDERED: ALBUTEROL NEBULIZED 2.5 MG/3 ML INHALATION PRN (12:57)
[2017-10-22] MEDS ORDERED: ALBUTEROL INHALER 60 PUFF/8 GM INHALER INHALATION PRN (12:57)
[2017-10-22] MEDS: SODIUM CHLORIDE 0.9% 1,000 ML IV SCH ×2 (13:12→13:32)
--- NOTE | 2017-10-22 13:54 | CE ---
CARDIAC ELECTROPHYSIOLOGY REPORT PREOPERATIVE DIAGNOSIS: Atrial tachycardia. POSTOPERATIVE DIAGNOSIS: Sinus rhythm. PROCEDURE: Elective cardioversion. This patient recently underwent ablation for atrial flutter. She was seen in the hospital and had ablation for atrial fibrillation and flutter. She was seen in the office recently and patient was found to be in atrial tachycardia. Patient's condition was discussed with Dr. Rascon and he wanted to go ahead and do the cardioversion and patient was brought in for the cardiac was the patient has been anticoagulated. PROCEDURE: The patient was given intravenous sedation by the nurse director broadcast and then cardioverted with 200 joules in the synchronized mode to the normal sinus rhythm. EKG before the cardioversion confirm the evidence of atrial tachycardia and subsequent EKG shows normal sinus rhythm. We will monitor the patient and patient will be subsequently discharged home in the evening. MMODL / IJN: [id number] /
[2017-10-22 16:59] VITALS: RESP 20
[2017-10-22 17:19] VITALS: BP 104/60; PULSE 68
[2017-10-22] MEDS ORDERED: SYMBICORT 160-4.5 MCG INHALER INHALATION SCH (20:00)
[2017-10-22] MEDS ORDERED: APIXABAN 5 MG TAB PO SCH (21:00)
[2017-10-22] MEDS ORDERED: ATORVASTATIN 20 MG TAB PO SCH (21:00)
[2017-10-22] MEDS ORDERED: METOPROLOL TARTRATE 50 MG TAB PO SCH (21:00)
[2017-10-22] MEDS ORDERED: FLECAINIDE ACETATE 100 MG PO SCH (21:00)
[2017-10-23] MEDS ORDERED: buPROPion SR 150 MG TABLET.ER PO SCH (09:00)
[2017-10-23] MEDS ORDERED: FAMOTIDINE 20 MG TAB PO SCH (09:00)
== END 2017-10-22 16:00 | disposition home or self-care (01) ==
LOC: CATHCVL 10:55
PROVIDERS: ATTEND Internal Medicine Cardiovascular Disease
DX: I48.1 Persistent atrial fibrillation (principal); I48.3 Typical atrial flutter; Z79.01 Long term (current) use of anticoagulants; F17.210 Nicotine dependence, cigarettes, uncomplicated; E78.2 Mixed hyperlipidemia; Z82.49 Family history of ischemic heart disease and other diseases of the circulatory system; Z86.73 Personal history of transient ischemic attack (TIA), and cerebral infarction without residual deficits; Q21.1 Atrial septal defect; Z79.83 Long term (current) use of bisphosphonates; Z79.899 Other long term (current) drug therapy; Z88.2 Allergy status to sulfonamides; Z91.048 Other nonmedicinal substance allergy status
CPT/HCPCS: 92960; J2704; 93005